=== PATIENT | male | born 1975 | race African-American/Black ===

== ENCOUNTER 2017-02-14 20:27 | Emergency (ER) | payer BC ==
--- NOTE | 2017-02-14 21:11 | PHYS DOC ---
Past Medical History Past Medical History: Asthma, High Cholesterol Past Surgical History: No Surgical History Alcohol Use: Occasionally Drug Use: None Adult General Chief Complaint Chief Complaint: DIZZY/LIGHT HEADED HPI HPI 41-year-old male with known history of asthma and hypercholesterolemia presents with a days worth of decreased PO intake and feelings of dizziness and lightheadedness with exertion. 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 He followed up with his medic and was given some antacid medicine and laid down and rested for approximately an hour. When he awoke, he said he felt significantly better but when he tried to eat and have something to drink afterwards and he said he was nauseated and had minimal appetite and continued to remain somewhat lightheaded and dizzy. He states he's had symptoms like this several years ago that were due to dehydration. He denies feeling significantly short of breath or having any chest pain. He is currently alert and oriented and able to answer my questions appropriately. He appears to be in no distress whatsoever saturating 100% on room air. He denies any recent fever or illness. Review of Systems Review of Systems Constitutional: Denies fever or chills [] Eyes: Denies change in visual acuity, redness, or eye pain [] HENT: Denies nasal congestion or sore throat [] Respiratory: Denies cough or shortness of breath [] Cardiovascular: No additional information not addressed in HPI [] GI: Denies abdominal pain, nausea, vomiting, bloody stools or diarrhea [] : Denies dysuria or hematuria [] Musculoskeletal: Denies back pain or joint pain [] Integument: Denies rash or skin lesions [] Neurologic: Denies headache, focal weakness or sensory changes [] Endocrine: Denies polyuria or polydipsia [] Current Medications Current Medications Current Medications Medications (Trade) Dose Ordered Sig/Jaime Start Time Stop Time Status Last Admin Dose Admin Ondansetron HCl (Zofran) 4 mg 1X ONCE 02/14/17 21:15 02/14/17 21:16 DC 02/14/17 21:19 4 MG Sodium Chloride (Iv Sodium Chloride 0.9% 1000ml Bag) 1,000 ml @ 1,000 mls/hr 1X ONCE 02/14/17 21:15 02/14/17 22:14 02/14/17 21:18 1,000 MLS/HR Allergies Allergies Allergies Coded Allergies Type Severity Reaction Last Updated Verified No Known Drug Allergies 02/14/17 No Physical Exam Physical Exam Constitutional: Well developed, well nourished, no acute distress, non-toxic appearance. [] HENT: Normocephalic, atraumatic, bilateral external ears normal, oropharynx moist, no oral exudates, nose normal. [] Eyes: PERRLA, EOMI, conjunctiva normal, no discharge. [] Neck: Normal range of motion, no tenderness, supple, no stridor. [] Cardiovascular:Heart rate regular rhythm, no murmur [] Lungs & Thorax: Bilateral breath sounds clear to auscultation [] Abdomen: Bowel sounds normal, soft, no tenderness, no masses, no pulsatile masses. [] Skin: Warm, dry, no erythema, no rash. [] Back: No tenderness, no CVA tenderness. [] Extremities: No tenderness, no cyanosis, no clubbing, ROM intact, no edema. [] Neurologic: Alert and oriented X 3, normal motor function, normal sensory function, no focal deficits noted. [] Psychologic: Affect normal, judgement normal, mood normal. [] Current Patient Data Vital Signs Vital Signs Date Time Temp Pulse Resp B/P Pulse Ox O2 Delivery O2 Flow Rate FiO2 02/14/17 20:29 97.7 63 18 119/75 97 Room Air 97.7 Lab Values Laboratory Tests Test 02/14/17 21:00 White Blood Count 6.9x10^3/uL (4.0-11.0) Red Blood Count 4.84x10^6/uL (4.30-5.70) Hemoglobin 15.4g/dL (13.0-17.5) Hematocrit 45.6% (39.0-53.0) Mean Corpuscular Volume 94fL (79-100) Mean Corpuscular Hemoglobin 32pg (25-35) Mean Corpuscular Hemoglobin Concent 34g/dL (31-37) Red Cell Distribution Width 13.0% (11.5-14.5) Platelet Count 238x10^3/uL (140-400) Neutrophils (%) (Auto) 65% (31-73) Lymphocytes (%) (Auto) 26% (24-48) Monocytes (%) (Auto) 7% (0-9) Eosinophils (%) (Auto) 2% (0-3) Basophils (%) (Auto) 1% (0-3) Neutrophils # (Auto) 4.5x10^3uL (1.8-7.7) Lymphocytes # (Auto) 1.8x10^3/uL (1.0-4.8) Monocytes # (Auto) 0.5x10^3/uL (0.0-1.1) Eosinophils # (Auto) 0.1x10^3/uL (0.0-0.7) Basophils # (Auto) 0.1x10^3/uL (0.0-0.2) Sodium Level 140mmol/L (136-145) Potassium Level 3.7mmol/L (3.5-5.1) Chloride Level 102mmol/L (98-107) Carbon Dioxide Level 29mmol/L (21-32) Anion Gap 9 (6-14) Blood Urea Nitrogen 13mg/dL (8-26) Creatinine 1.1mg/dL (0.7-1.3) Estimated GFR (Cockcroft-Gault) 73.1 Glucose Level 102mg/dL (70-99) H Calcium Level 9.3mg/dL (8.5-10.1) Troponin I Quantitative < 0.017ng/mL (0.000-0.055) Laboratory Tests 02/14/17 21:00 Laboratory Tests 02/14/17 21:00 EKG EKG EKG as interpreted by me shows a sinus rhythm with a rate of 57 bpm. Intervals are normal. [place] interval is 168 ms. QTc interval is 355 ms. There are no obvious ischemic findings. Course & Med Decision Making Course & Med Decision Making Pertinent Labs and Imaging studies reviewed. (See chart for details) This 41-year-old male who's having some symptomatic lightheadedness and dizziness with minimal exertion will have laboratory workup including EKG. Fluid bolus and Zofran will be given. Ultimately, the patient will be ambulated around the department and likely will be safe to follow closely with his primary care doctor. A work note will be provided and he is instructed to rest and hydrate at home tomorrow. Upon my reassessment, the patient feels much improved after an IV fluid bolus. Patient will be discharged with a course of Zofran with instruction to continue to remain well-hydrated at home. Dragon Disclaimer Dragon Disclaimer This electronic medical record was generated, in whole or in part, using a voice recognition dictation system. Departure Departure Impression: Primary Impression: Dehydration Disposition: 01 HOME, SELF-CARE Condition: IMPROVED Patient Instructions: Dehydration, Adult, [id number] Additional Instructions: Please take your zofran as prescribed and continue to drink plenty of fluids at home. Remain at home tomorrow and rest. Return to the ER if you develop any worsening of your dizziness or lightheadedness. Scripts Ondansetron Hcl (Zofran)4 Mg Tablet4 Mg PO BID PRN NAUSEA/VOMITING #10 TAB Prov:JUAN JACKSON DO 02/14/17 JUAN JACKSON DO Feb 14, 2017 21:11
[2017-02-14 21:13] LABS: BASO # 0.1 x10^3/uL (0.0-0.2); BASO % 1 % (0-3); EOS % 2 % (0-3); HEMATOCRIT 45.6 % (39.0-53.0); HEMOGLOBIN 15.4 g/dL (13.0-17.5); LYMPH # 1.8 x10^3/uL (1.0-4.8); LYMPH % 26 % (24-48); MEAN CORPUSCULAR HEMOGLOBIN 32 pg (25-35); MEAN CORPUSCULAR HGB CONC 34 g/dL (31-37); MEAN CORPUSCULAR VOLUME 94 fL (79-100); MONO % 7 % (0-9); NEUT % 65 % (31-73); PLATELET COUNT 238 x10^3/uL (140-400); RED BLOOD COUNT 4.84 x10^6/uL (4.30-5.70); WHITE BLOOD COUNT 6.9 x10^3/uL (4.0-11.0)
[2017-02-14] MEDS ORDERED: IV NORMAL SALINE 1000ML BAG 1,000 ML IV ONE (21:15)
[2017-02-14] MEDS ORDERED: ONDANSETRON PF 4 MG/2 ML VIAL. IV ONE (21:15)
[2017-02-14 21:25] LABS: CALCIUM 9.3 mg/dL (8.5-10.1); CREATININE 1.1 mg/dL (0.7-1.3); GFR 73.1; POTASSIUM 3.7 mmol/L (3.5-5.1)
[2017-02-14 21:44] VITALS: BP 136/73
[2017-02-14] MEDS ORDERED: ONDA4TAB7 PO (22:03)
--- NOTE | 2017-02-15 06:26 | EKG ---
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
== END 2017-02-14 22:32 | disposition home or self-care (01) ==
LOC: ER 20:27
DX: E86.0 Dehydration (principal); E78.00 Pure hypercholesterolemia, unspecified; J45.909 Unspecified asthma, uncomplicated
CPT/HCPCS: 36415; 80048; 84484; 85027; 93005; 96361; 96374; 99285; J2405; J7030

== ENCOUNTER 2017-02-27 18:25 | Emergency (ER) | payer BC ==
[~2017-02-27] VITALS: Ht 180.3 cm; Wt 95.3 kg
[~2017-02-27 18:25] MED LIST: ONDA4TAB7 PO
[2017-02-27 18:38] VITALS: BP 135/71
[2017-02-27] MEDS ORDERED: predniSONE 20 MG TABLET PO ONE (19:00)
[2017-02-27] MEDS ORDERED: BENZONATATE 100 MG CAPSULE. PO ONE (19:00)
[2017-02-27] MEDS ORDERED: IPRATRPIUM/ALBUTEROL 0.5/2.5MG 3 ML NEBU. NEB ONE (19:00)
[2017-02-27] MEDS ORDERED: PROAIR RESPICL90 MCG IH (19:29)
[2017-02-27] MEDS ORDERED: PRED50TA PO (19:29)
[2017-02-27] MEDS ORDERED: AZIT250T PO (19:29)
[2017-02-27] MEDS ORDERED: BENZ100C PO (19:29)
--- NOTE | 2017-02-27 19:29 | PHYS DOC ---
Past Medical History Past Medical History: Asthma, High Cholesterol Past Surgical History: No Surgical History Alcohol Use: Occasionally Drug Use: None Adult General Chief Complaint Chief Complaint: COUGH HPI HPI Patient is a 41 year old male with history of smoking and bronchitis who presents with cough and wheezing that began 2 days ago. Patient states he has tried using his inhaler with no relief. Patient states he typically has to have a Z-Chon and prednisone to clear the symptoms. Patient denies any fever. Review of Systems Review of Systems Constitutional: Denies fever or chills [] Eyes: Denies change in visual acuity, redness, or eye pain [] HENT: See history of present illness Respiratory: Productive cough with wheezing Cardiovascular: No additional information not addressed in HPI [] GI: Denies abdominal pain, nausea, vomiting, bloody stools or diarrhea [] : Denies dysuria or hematuria [] Musculoskeletal: Denies back pain or joint pain [] Integument: Denies rash or skin lesions [] Neurologic: Denies headache, focal weakness or sensory changes [] Endocrine: Denies polyuria or polydipsia [] Current Medications Current Medications Current Medications Medications (Trade) Dose Ordered Sig/Jaime Start Time Stop Time Status Last Admin Dose Admin Albuterol/ Ipratropium (Duoneb) 3 ml 1X ONCE 02/27/17 19:00 02/27/17 19:03 DC 02/27/17 19:14 3 ML Benzonatate (Tessalon Perle) 100 mg 1X ONCE 02/27/17 19:00 02/27/17 19:03 DC 02/27/17 19:16 100 MG Prednisone (Prednisone) 60 mg 1X ONCE 02/27/17 19:00 02/27/17 19:03 DC 02/27/17 19:16 60 MG Allergies Allergies Allergies Coded Allergies Type Severity Reaction Last Updated Verified No Known Drug Allergies 02/14/17 No Physical Exam Physical Exam Constitutional: Well developed, well nourished, no acute distress, non-toxic appearance. [] HENT: Normocephalic, atraumatic, bilateral external ears normal, oropharynx moist, no oral exudates, nose normal. [] Eyes: PERRLA, EOMI, conjunctiva normal, no discharge. [] Neck: Normal range of motion, no tenderness, supple, no stridor. [] Cardiovascular:Heart rate regular rhythm, no murmur [] Lungs & Thorax: Diffuse wheezing to posterior upper and lower lung bases. Anterior lung bases are clear. Abdomen: Bowel sounds normal, soft, no tenderness, no masses, no pulsatile masses. [] Skin: Warm, dry, no erythema, no rash. [] Back: No tenderness, no CVA tenderness. [] Extremities: No tenderness, no cyanosis, no clubbing, ROM intact, no edema. [] Neurologic: Alert and oriented X 3, normal motor function, normal sensory function, no focal deficits noted. [] Psychologic: Affect normal, judgement normal, mood normal. [] Current Patient Data Vital Signs Vital Signs Date Time Temp Pulse Resp B/P Pulse Ox O2 Delivery O2 Flow Rate FiO2 02/27/17 18:38 98.5 66 18 94 Room Air 98.5 EKG EKG [] Radiology/Procedures Radiology/Procedures [] Course & Med Decision Making Course & Med Decision Making Pertinent Labs and Imaging studies reviewed. (See chart for details) Patient is in the ED with symptoms consistent of bronchitis. Chest x-ray interpreted by Dr. Dillon is negative for any acute findings. He was given a DuoNeb treatment prednisone and Tessalon Perles. His lungs have cleared up. Discharged with albuterol inhaler prednisone Tessalon Perles and Z-Chon. Follow- up with his own doctor in one week. Nafisa Disclaimer Nafisa Disclaimer This electronic medical record was generated, in whole or in part, using a voice recognition dictation system. Departure Departure Impression: Primary Impression: Acute bronchitis Disposition: 01 HOME, SELF-CARE Condition: STABLE Referrals: NO PCP (PCP) Please follow-up with your doctor in one week Patient Instructions: Acute Bronchitis, [id number] Additional Instructions: You were seen with symptoms consistent of bronchitis. Please take the prescribed medicines as ordered. Follow-up with your doctor in one week. Come back to the ED if symptoms worsen. Scripts Azithromycin (Zithromax)250 Mg Tablet1 Pkg PO UD #1 PKG Prov:MUTUNGA,FUENTES DIGITAL MEDIA REPRESENTATIVE 02/27/17 Benzonatate (Tessalon Perle)100 Mg Capsule1 Cap PO TID #30 CAP Prov:MUTUNGA,FUENTES DIGITAL MEDIA REPRESENTATIVE 02/27/17 Prednisone 50 Mg Tablet1 Tab PO DAILY #4 TAB Prov:MUTUNGA,FUENTES DIGITAL MEDIA REPRESENTATIVE 5/2/17 Albuterol Sulfate (Proair Respiclick)90 Mcg Aer.pow.ba1 Puff IH PRN Q6HRS PRN SHORTNESS OF BREATH #1 INHALER Prov:FUENTES NGUYEN APRN 02/27/17 Problem Qualifiers Primary Impression: Acute bronchitis Bronchitis organism: unspecified organism Qualified Code: J20.9 - Acute bronchitis, unspecified FUENTES NGUYEN APRN February 27, 2017 19:29
--- NOTE | 2017-02-28 08:15 | RAD ---
Indication cough for 3 days. PA and lateral views of the chest were obtained. No prior imaging is available. The heart and pulmonary vessels appear normal. The lungs are clear. Bony structures appear grossly intact. IMPRESSION: Normal study
== END 2017-02-27 19:32 | disposition home or self-care (01) ==
LOC: ER 18:25
DX: J20.9 Acute bronchitis, unspecified (principal); E78.00 Pure hypercholesterolemia, unspecified; J45.909 Unspecified asthma, uncomplicated; F17.200 Nicotine dependence, unspecified, uncomplicated
CPT/HCPCS: 71020; 94250; 94640; 99284; J7512; J7620

== ENCOUNTER 2017-05-03 11:20 | Emergency (ER) | payer BC ==
[~2017-05-03] VITALS: Ht 180.3 cm; Wt 95.3 kg
[~2017-05-03 11:20] MED LIST changes: +AZIT250T PO; +BENZ100C PO; +PRED50TA PO; +PROAIR RESPICL90 MCG IH
[2017-05-03 11:24] VITALS: BP 141/83
[2017-05-03] MEDS ORDERED: IPRATRPIUM/ALBUTEROL 0.5/2.5MG 3 ML NEBU. NEB ONE (11:45)
[2017-05-03] MEDS ORDERED: IPRA3AMP NEB (12:30)
[2017-05-03] MEDS ORDERED: PROAIR HFA8.5 GM INH (12:30)
--- NOTE | 2017-05-03 12:30 | PHYS DOC ---
Past Medical History Past Medical History: Asthma, High Cholesterol Past Surgical History: No Surgical History Additional Information: 0.25 PPD Alcohol Use: Occasionally Drug Use: None Adult General Chief Complaint Chief Complaint: ASTHMA HPI HPI Patient is a 41 year old male presents to the emergency department stating that he's had a 3 to four-day history of shortness of breath with wheezing. He states that he has been using his inhaler more frequently than normal, he states that he's been using an approximately 10 times a day. He states that he continues to have wheezing and shortness of air despite of the use. He denies any chest pain or chest discomfort. Patient does state that he has an appointment with his primary care physician on May 08 however he does not feel he can wait until then to have any relief from the wheezing. Review of Systems Review of Systems Constitutional: Denies fever or chills [] Eyes: Denies change in visual acuity, redness, or eye pain [] HENT: Denies nasal congestion or sore throat [] Respiratory: Denies cough C/o shortness of breath, wheezing [] Cardiovascular: No additional information not addressed in HPI [] GI: Denies abdominal pain, nausea, vomiting, bloody stools or diarrhea [] : Denies dysuria or hematuria [] Musculoskeletal: Denies back pain or joint pain [] Integument: Denies rash or skin lesions [] Neurologic: Denies headache, focal weakness or sensory changes [] Endocrine: Denies polyuria or polydipsia [] Current Medications Current Medications Current Medications Medications (Trade) Dose Ordered Sig/Jaime Start Time Stop Time Status Last Admin Dose Admin Albuterol/ Ipratropium (Duoneb) 3 ml 1X ONCE 05/03/17 11:45 05/03/17 11:51 DC 05/03/17 11:54 3 ML Allergies Allergies Allergies Coded Allergies Type Severity Reaction Last Updated Verified No Known Drug Allergies 02/14/17 No Physical Exam Physical Exam Constitutional: Well developed, well nourished, no acute distress, non-toxic appearance. [] HENT: Normocephalic, atraumatic, bilateral external ears normal, oropharynx moist, no oral exudates, nose normal. [] Eyes: PERRLA, EOMI, conjunctiva normal, no discharge. [] Neck: Normal range of motion, no tenderness, supple, no stridor. [] Cardiovascular:Heart rate regular rhythm, no murmur [] Lungs & Thorax: Breath sounds with wheezing noted in the right lower lobe area posteriorly. Skin: Warm, dry, no erythema, no rash. [] Back: No tenderness Extremities: No tenderness, no cyanosis, no clubbing, ROM intact, no edema. [] Neurologic: Alert and oriented X 3, normal motor function, normal sensory function, no focal deficits noted. [] Psychologic: Affect normal, judgement normal, mood normal. [] Current Patient Data Vital Signs Vital Signs Date Time Temp Pulse Resp B/P (MAP) Pulse Ox O2 Delivery O2 Flow Rate FiO2 05/03/17 11:56 95 Room Air 05/03/17 11:24 98.1 78 18 141/83 (102) 98.1 EKG EKG [] Radiology/Procedures Radiology/Procedures [] Course & Med Decision Making Course & Med Decision Making Pertinent Labs and Imaging studies reviewed. (See chart for details) Patient was provided with respiratory treatment here in the emergency department. He still continues to have wheezes in the posterior lower lobe. Patient will be discharged home with a albuterol inhaler as well as medication for his nebulizer machine at home. He'll be placed on prednisone 40 mg daily for the next 7 days he was recommended to keep his appointment on May 08 for follow-up. Patient was also instructed to not use his inhaler more frequently than as prescribed as this can create increased difficulty with breathing and heart issues. Patient agrees with discharge instructions, treatment regimens and follow-up recommendations. Patient was also instructed to stop smoking as he does state that he is attempting. [] Dragon Disclaimer Dragon Disclaimer This electronic medical record was generated, in whole or in part, using a voice recognition dictation system. Departure Departure Impression: Primary Impression: Asthma exacerbation Disposition: HOME, SELF-CARE Condition: STABLE Referrals: DHEERAJ BARRAGAN MD (PCP) Patient Instructions: Asthma, Adult, [id number] Additional Instructions: Activity as tolerated Medication as prescribed Albuterol inhaler every 4 hours as needed for shortness of breath or wheezing Use the nebulizer every 6 hours as needed Keep your followup appointment in which you have on May 08 Return to emergency department as needed for signs and symptoms that become worse. Scripts Ipratropium/Albuterol Sulfate (DUONEB 0.5-3(2.5) MG/3 ML) 3 Ml Ampul.neb 3 ML NEB QID, #1 EACH Prov: MARIUM MCKOY APRN 05/03/17 Albuterol Sulfate (PROAIR HFA INHALER) 8.5 Gm Hfa.aer.ad 1 PUFF INH PRN Q6HRS Y for SHORTNESS OF BREATH, #1 INHALER 0 Refills Prov: MARIUM MCKOY APRN 05/03/17 MARIUM MCKOY APRN May 03, 2017 12:30
== END 2017-05-03 12:49 | disposition home or self-care (01) ==
LOC: ER 11:20
DX: J45.901 Unspecified asthma with (acute) exacerbation (principal); E78.00 Pure hypercholesterolemia, unspecified; F17.200 Nicotine dependence, unspecified, uncomplicated
CPT/HCPCS: 94250; 94640; 99283; J7620

== ENCOUNTER 2019-01-02 06:55 | Observation (INO) | payer BC ==
[~2019-01-02] VITALS: Ht 180.3 cm; Wt 99.8 kg
[~2019-01-02 06:55] MED LIST changes: +ALBU2.5V8 INH; +IPRA3AMP29 NEB
[2019-01-02] MEDS ORDERED: NITROGLYCERIN SUBLINGUAL 0.4 MG BOTTLE OF 25. SL ONE (07:08)
[2019-01-02] MEDS: NITROGLYCERIN SUBLINGUAL 0.4 MG BOTTLE OF 25. SL PRN ×2 (07:09→07:14)
--- NOTE | 2019-01-02 07:26 | PHYS DOC ---
Past Medical History Past Medical History: Asthma, High Cholesterol Past Surgical History: No Surgical History Additional Information: 6-7 cigarettes daily Alcohol Use: Heavy Additional Information: 2 shots of whiskey or cogniac daily Drug Use: Marijuana Adult General Chief Complaint Chief Complaint: CHEST PAIN HPI HPI Patient is a 43 year old male who presents the ER for evaluation of chest pain. Patient reports at approximately 05 30 this morning he had acute onset of chest heaviness/pressure, 5-6 out of 10, constant, radiation down left arm. Denies any previous episodes. Does not take any medications prehospital. Pain is currently 5 out of 10. No shortness of breath, no nausea, no dizziness, no palpitations. Positive tobacco user, history of dyslipidemia, family history of early coronary artery disease. Reports daily EtOH intake. Patient does express concern about the volume of his alcohol intake. Denies any history of withdrawal seizures. Review of Systems Review of Systems Constitutional: Denies fever or chills [] HENT: Denies nasal congestion or sore throat [] Respiratory: Denies cough or shortness of breath [] Cardiovascular: + chest pain, no orthopnea, no LE edema, no palpitations GI: Denies abdominal pain, nausea, vomiting, bloody stools or diarrhea [] : Denies dysuria or hematuria [] Musculoskeletal: Denies back pain or joint pain [] Integument: Denies rash or skin lesions [] Neurologic: Denies headache, focal weakness or sensory changes [] Endocrine: Denies polyuria or polydipsia [] All other systems were reviewed and found to be within normal limits, except as documented in this note. Current Medications Current Medications Current Medications Medications (Trade) Dose Ordered Sig/Jaime Start Time Stop Time Status Last Admin Dose Admin Aspirin (Children'S Aspirin) 324 mg 1X ONCE 01/02/19 07:30 01/02/19 07:31 DC 01/02/19 07:37 324 MG Nitroglycerin (Nitrostat) 0.4 mg PRN Q5MIN PRN 01/02/19 07:30 01/02/19 07:14 0.4 MG Allergies Allergies Allergies Coded Allergies Type Severity Reaction Last Updated Verified No Known Drug Allergies 02/14/17 No Physical Exam Physical Exam Constitutional: Well developed, well nourished, anxious HENT: Normocephalic, atraumatic, Eyes: PERRLA, EOMI, Neck: Normal range of motion, no tenderness, supple, no stridor. [] Cardiovascular:Heart rate regular rhythm, no murmur [] Lungs & Thorax: Bilateral breath sounds clear to auscultation [] Abdomen: Bowel sounds normal, soft, no tenderness, no masses, no pulsatile masses. [] Skin: Warm, dry, no erythema, no rash. [] Back: No tenderness, no CVA tenderness. [] Extremities: No tenderness, no edema. [] Neurologic: Alert and oriented X 3, no focal deficits noted. [] Psychologic: Anxious, judgement normal, mood normal. [] Current Patient Data Vital Signs Vital Signs Date Time Temp Pulse Resp B/P (MAP) Pulse Ox O2 Delivery O2 Flow Rate FiO2 01/02/19 08:18 62 15 125/66 (85) 96 Room Air 01/02/19 07:02 97.7 97.7 Lab Values Laboratory Tests Test 01/02/19 07:40 White Blood Count 6.0 x10^3/uL (4.0-11.0) Red Blood Count 4.57 x10^6/uL (4.30-5.70) Hemoglobin 14.8 g/dL (13.0-17.5) Hematocrit 43.5 % (39.0-53.0) Mean Corpuscular Volume 95 fL (79-100) Mean Corpuscular Hemoglobin 32 pg (25-35) Mean Corpuscular Hemoglobin Concent 34 g/dL (31-37) Red Cell Distribution Width 12.9 % (11.5-14.5) Platelet Count 220 x10^3/uL (140-400) Neutrophils (%) (Auto) 67 % (31-73) Lymphocytes (%) (Auto) 23 % (24-48) L Monocytes (%) (Auto) 7 % (0-9) Eosinophils (%) (Auto) 2 % (0-3) Basophils (%) (Auto) 1 % (0-3) Neutrophils # (Auto) 4.0 x10^3uL (1.8-7.7) Lymphocytes # (Auto) 1.4 x10^3/uL (1.0-4.8) Monocytes # (Auto) 0.4 x10^3/uL (0.0-1.1) Eosinophils # (Auto) 0.1 x10^3/uL (0.0-0.7) Basophils # (Auto) 0.0 x10^3/uL (0.0-0.2) Sodium Level 141 mmol/L (136-145) Potassium Level 3.8 mmol/L (3.5-5.1) Chloride Level 102 mmol/L (98-107) Carbon Dioxide Level 28 mmol/L (21-32) Anion Gap 11 (6-14) Blood Urea Nitrogen 20 mg/dL (8-26) Creatinine 1.0 mg/dL (0.7-1.3) Estimated GFR (Cockcroft-Gault) 97.8 Glucose Level 109 mg/dL (70-99) H Calcium Level 9.2 mg/dL (8.5-10.1) Troponin I Quantitative < 0.017 ng/mL (0.000-0.055) Laboratory Tests 01/02/19 07:40 Laboratory Tests 01/02/19 07:40 EKG EKG [] 0703: Normal sinus rhythm, no significant ST segment changes. No T-wave inversions. Heart rate 63. Radiology/Procedures Radiology/Procedures CXR IMPRESSION: No acute cardiopulmonary abnormality is detected. Electronically signed by: Sung Gale MD (01/02/2019 7:48 AM) [facility][] Course & Med Decision Making Course & Med Decision Making Pertinent Labs and Imaging studies reviewed. (See chart for details) []0724: Patient with resolution of chest pain/chest heaviness after nitroglycerin sublingual 2. Given the risk factors and elevated heart score will plan to admit. Will continue to monitor pain while in the ER. 0839: Has remained chest pain-free while in the ER after the initial nitroglycerin. Has been given aspirin. Initial EKG and troponin with no acute findings. Chest x-ray with no acute findings. Given cardiac risk factors presentation and elevated heart score will admit. Discussed with Dr. Lees, tongue and groove machine setter for hospital service who is agreeable to admission. Dragon Disclaimer Dragon Disclaimer This electronic medical record was generated, in whole or in part, using a voice recognition dictation system. Departure Departure Impression: Primary Impression: Chest pain Disposition: ADMITTED INPATIENT Admitting Physician: Other (Yoana) Condition: GUARDED Referrals: DHEERAJ BARRAGAN MD (PCP) CORRY CHANG DO Jan 02, 2019 07:25
[2019-01-02] MEDS ORDERED: ASPIRIN CHEWABLE 81 MG TABLET. PO ONE (07:30)
--- NOTE | 2019-01-02 07:51 | RAD ---
Chest, 2 views, 01/02/2019: HISTORY: Chest and left arm pain Comparison is made to a study from 02/27/2017. The heart size and pulmonary vascularity are normal. No pulmonary infiltrate is seen. There is no evidence of pleural fluid. IMPRESSION: No acute cardiopulmonary abnormality is detected. Electronically signed by: Sung Gale MD (01/02/2019 7:48 AM) [facility]
[2019-01-02 08:04] LABS: BASO % 1 % (0-3); EOS # 0.1 x10^3/uL (0.0-0.7); EOS % 2 % (0-3); HEMATOCRIT 43.5 % (39.0-53.0); HEMOGLOBIN 14.8 g/dL (13.0-17.5); LYMPH # 1.4 x10^3/uL (1.0-4.8); LYMPH % 23 % (24-48); MEAN CORPUSCULAR HEMOGLOBIN 32 pg (25-35); MEAN CORPUSCULAR HGB CONC 34 g/dL (31-37); MEAN CORPUSCULAR VOLUME 95 fL (79-100); MONO # 0.4 x10^3/uL (0.0-1.1); MONO % 7 % (0-9); NEUT % 67 % (31-73); PLATELET COUNT 220 x10^3/uL (140-400); RED BLOOD COUNT 4.57 x10^6/uL (4.30-5.70); RED CELL DISTRIBUTION WIDTH 12.9 % (11.5-14.5)
[2019-01-02 08:07] LABS: CALCIUM 9.2 mg/dL (8.5-10.1); GFR 97.8; POTASSIUM 3.8 mmol/L (3.5-5.1)
[2019-01-02] MEDS ORDERED: MORPHINE SULFATE 2 MG/ML VIAL. IV PRN (08:45)
[2019-01-02] MEDS ORDERED: NON FORMULARY ITEM (Albuterol Sulfate (Proair Respiclick) 1 PUFF) IH PRN (08:45)
[2019-01-02] MEDS ORDERED: ACETAMINOPHEN 325 MG TABLET. PO PRN (08:45)
[2019-01-02] MEDS ORDERED: MAG HYDROX/ALUMINUM HYD/SIMETH 30 ML ORAL.SUSP PO PRN (08:45)
[2019-01-02] MEDS ORDERED: MAGNESIUM HYDROXIDE 2,400 MG/30 ML ORAL.SUSP. PO PRN (08:45)
[2019-01-02] MEDS ORDERED: NITROGLYCERIN SUBLINGUAL 0.4 MG BOTTLE OF 25. SL PRN ×2 (08:45)
[2019-01-02] MEDS ORDERED: 0.9 % SODIUM CHLORIDE 10 ML DISP.SYRIN. IV PRN (08:45)
[2019-01-02] MEDS ORDERED: ZOLPIDEM 5 MG TABLET. PO PRN (08:45)
[2019-01-02] MEDS ORDERED: ONDANSETRON PF 4 MG/2 ML VIAL. IV PRN (08:45)
[2019-01-02] MEDS ORDERED: LACTULOSE 20 GM/30 ML SOLUTION. PO PRN (08:45)
[2019-01-02] MEDS: IPRATRPIUM/ALBUTEROL 0.5/2.5MG 3 ML NEBU. NEB SCH ×4 (09:00→20:00)
[2019-01-02] MEDS ORDERED: ALBUTEROL SULFATE 2.5 MG/3 ML NEBU. NEB PRN (09:15)
[2019-01-02] MEDS ORDERED: ONDANSETRON ODT 4 MG TAB.RAPDIS. PO PRN (09:45)
[2019-01-02 09:50] VITALS: BP 144/74
--- NOTE | 2019-01-02 10:00 | NUR ---
Patient admitted 0950, oriented to room, VSS, family at bedside, orders reviewed.
--- NOTE | 2019-01-02 10:35 | EKG ---
[facility] [address] [place] [address] Test Date: 2019-01-02 Test Time: 07:03:37 Pat Name: FIOR BUSTILLO Department: Room: 114 1 Gender: M Dock Boss: : 1975 Requested By: CORRY CHANG Order Number: [id number] Reading MD: Colby Leonard MD Measurements Intervals [place] Rate: 63 P: 43 NM: 170 QRS: 63 QRSD: 92 T: 26 QT: 356 QTc: 367 Interpretive Statements SINUS RHYTHM Electronically Signed On 01-02-2019 11:25:19 FLOATING OPERATOR by Colby Leonard MD
[2019-01-02] MEDS ORDERED: hydrALAZINE 20 MG/ML VIAL. IVP PRN (10:45)
[2019-01-02] MEDS ORDERED: EZET10TA18 PO (10:58)
[2019-01-02] MEDS ORDERED: BUPR450T3 PO (10:58)
[2019-01-02] MEDS ORDERED: MONT10TA9 PO (10:59)
[2019-01-02 11:00] VITALS: BP 140/70
--- NOTE | 2019-01-02 11:05 | PDOC2 ---
TOMAS GARCIA PHOTOGRAPHY COORDINATOR 01/02/19 1105: CARDIAC CONSULT DATE OF CONSULT Date of Consult DATE: 01/02/19 TIME: 10:41 REASON FOR CONSULT Reason for Consult: Chest pain REFERRING PHYSICIAN Referring Physician: Shazia SOURCE Source: Chart review, Patient HISTORY OF PRESENT ILLNESS HISTORY OF PRESENT ILLNESS This is a pleasant 43 yo male admitted for complains of chest pain. Reports that he got home this morning as he was restless last night and actually took caffeine tabs as he works night and he laid down and felt achy left chest with some tingling to his left arm. This lasted for an hour and no SOA, but possibly sensation of palpitations. No nausea or SOA. 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 Denies any past injury, fall, and no fever or chills. No recent long distance travel, neck or shoulder injury. Denies any significant NSAID use and does have heartburn mostly once a week depending of what he eats. Denies any VTE, heart disease. He does drink alcohol and smoke tobacco and was recently changed from statin to zetia due to elevated LFTs. PAST MEDICAL HISTORY Cardiovascular: Hyperlipidemia Pulmonary: Asthma GI: GERD Heme/Onc: No pertinent hx Hepatobiliary: No pertinent hx Psych: Anxiety Musculoskeletal: Other (None) Rheumatologic: No pertinent hx Infectious disease: No pertinent hx ENT: No pertinent hx Renal/: No pertinent hx Endocrine: No pertinent hx Dermatology: No pertinent hx PAST SURGICAL HISTORY Past Surgical History: No pertinent history FAMILY HISTORY Family History: Coronary Artery Disease (father in his 50s) SOCIAL HISTORY Smoke: <1 pack per day ALCOHOL: heavy Drugs: Marijuana Lives: with Family CURRENT MEDICATIONS CURRENT MEDICATIONS Current Medications Medications (Trade) Dose Ordered Sig/Jaime Route PRN Reason Start Time Stop Time Status Last Admin Dose Admin Nitroglycerin (Nitrostat) 0.4 mg PRN Q5MIN PRN SL CHEST PAIN 01/02/19 07:30 01/02/19 07:14 Aspirin (Children'S Aspirin) 324 mg 1X ONCE PO 01/02/19 07:30 01/02/19 07:31 DC 01/02/19 07:37 ALLERGIES ALLERGIES: Coded Allergies: No Known Drug Allergies (Unverified , 02/14/17) ROS Review of System 14 point ROS evaluated with pertinent positives noted per HPI PHYSICAL EXAM General: Alert, Oriented X3, Cooperative, No acute distress HEENT: Atraumatic, Mucous membr. moist/pink Lungs: Clear to auscultation, Normal air movement Heart: Regular rate (SR), Normal S1, Normal S2, No murmurs Abdomen: Soft, No tenderness Extremities: No cyanosis, No edema Skin: No breakdown, No significant lesion Neuro: Normal speech, Sensation intact Psych/Mental Status: Mental status NL, Mood NL MUSCULOSKELETAL: Osteoarthritic changes both hands VITALS VITALS Vital Signs Date Time Temp Pulse Resp B/P (MAP) Pulse Ox O2 Delivery O2 Flow Rate FiO2 01/02/19 09:09 75 15 119/67 (84) 96 Room Air 01/02/19 07:02 97.7 97.7 LABS Lab: Laboratory Tests Test 01/02/19 07:40 White Blood Count 6.0 x10^3/uL (4.0-11.0) Red Blood Count 4.57 x10^6/uL (4.30-5.70) Hemoglobin 14.8 g/dL (13.0-17.5) Hematocrit 43.5 % (39.0-53.0) Mean Corpuscular Volume 95 fL (79-100) Mean Corpuscular Hemoglobin 32 pg (25-35) Mean Corpuscular Hemoglobin Concent 34 g/dL (31-37) Red Cell Distribution Width 12.9 % (11.5-14.5) Platelet Count 220 x10^3/uL (140-400) Neutrophils (%) (Auto) 67 % (31-73) Lymphocytes (%) (Auto) 23 % (24-48) Monocytes (%) (Auto) 7 % (0-9) Eosinophils (%) (Auto) 2 % (0-3) Basophils (%) (Auto) 1 % (0-3) Neutrophils # (Auto) 4.0 x10^3uL (1.8-7.7) Lymphocytes # (Auto) 1.4 x10^3/uL (1.0-4.8) Monocytes # (Auto) 0.4 x10^3/uL (0.0-1.1) Eosinophils # (Auto) 0.1 x10^3/uL (0.0-0.7) Basophils # (Auto) 0.0 x10^3/uL (0.0-0.2) Sodium Level 141 mmol/L (136-145) Potassium Level 3.8 mmol/L (3.5-5.1) Chloride Level 102 mmol/L (98-107) Carbon Dioxide Level 28 mmol/L (21-32) Anion Gap 11 (6-14) Blood Urea Nitrogen 20 mg/dL (8-26) Creatinine 1.0 mg/dL (0.7-1.3) Estimated GFR (Cockcroft-Gault) 97.8 Glucose Level 109 mg/dL (70-99) Calcium Level 9.2 mg/dL (8.5-10.1) Troponin I Quantitative < 0.017 ng/mL (0.000-0.055) ASSESSMENT/PLAN ASSESSMENT/PLAN 1. Atypical CP: possibly spasm, MSK. Trop nml. EKG SR without acute changes by comparison. 2. HLP: on home zetia 3. Hx of transaminitis: likely from combination of statin and ETOH 4. Anxiety 5. Heavy ETOH at least 2-3 shots daily cognac, and binge on weekend 6. Tobaccoism 7. Family hx of CAD Recommendations 1. Trend troponin, TTE, TSH and lipids and LFTs 2. Curb ETOH use and smoking cessation 3. If current cardiac testings are unremarkable then will consider for outpt stress test MOUNA FLORES MD 01/02/192039: CARDIAC CONSULT ASSESSMENT/PLAN ASSESSMENT/PLAN Patient seen and examined. Agree with [employer] DRIVER's assessment and plan. CP with atypical features and most probably musculoskeletal in etiology AR ruled out 2D echo shoed EF 50-55% Plan ischemic evaluation with stress test as outpatient Thank you for your consultation TOMAS GARCIA APRN Jan 02, 2019 11:05 MOUNA FLORES MD Jan 02, 2019 20:40
[2019-01-02 11:36] LABS: ALBUMIN 3.8 g/dL (3.4-5.0); DIRECT BILIRUBIN 0.1 mg/dL (0.0-0.2); TOTAL BILIRUBIN 0.5 mg/dL (0.2-1.0); TOTAL PROTEIN 7.1 g/dL (6.4-8.2)
--- NOTE | 2019-01-02 12:20 | EKG ---
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
[2019-01-02] MEDS: BENZONATATE 100 MG CAPSULE. PO SCH ×2 (14:00→20:59)
--- NOTE | 2019-01-02 14:01 | PDOC1 ---
History and Physical Date of Admission Date of Admission 01/02/2019 Identification/Chief Complaint Chief Complaint My chest hurts Problems: (1) Chest pain Source Source: Chart review, Patient History of Present Illness History of Present Illness Patient is a 43 year old gentleman with history of hypertension and tobacco abuse who was in his usual state fo health until this morning when he woke up with chest discomfort that he describes as "air around my heart" He had radiation to the arm and neck with no associated symptoms, the pain was not worse with exertion and he does not report sensation of impending doom. He refers having discomfort for at least 10 minutes. This is the first time episode. Patient has a very physical job and he denies trauma and no symptoms while performing his work. Patient will be admitted for rule out. His ekg and troponin are reassuring, he may be having anxiety given the history of stress at work. Past Medical History Cardiovascular: Hyperlipidemia Pulmonary: Asthma GI: GERD Heme/Onc: No pertinent hx Hepatobiliary: No pertinent hx Psych: Anxiety Rheumatologic: No pertinent hx Infectious disease: No pertinent hx ENT: No pertinent hx Renal/: No pertinent hx Endocrine: No pertinent hx Dermatology: No pertinent hx Past Surgical History Past Surgical History: No pertinent history Family History Family History: Coronary Artery Disease (father in his 50s) Social History Smoke: <1 pack per day ALCOHOL: heavy Drugs: Marijuana Current Medications Current Medications Current Medications Medications (Trade) Dose Ordered Sig/Jaime Start Time Stop Time Status Last Admin Dose Admin Acetaminophen (Tylenol) 650 mg PRN Q6HRS PRN 01/02/19 08:45 Al Hydroxide/Mg Hydroxide (Mylanta Plus Xs) 30 ml PRN Q4HRS PRN 01/02/19 08:45 Albuterol Sulfate (Ventolin Neb Soln) 2.5 mg PRN Q6HRS PRN 01/02/19 09:15 Albuterol/ Ipratropium (Duoneb) 3 ml QID 01/02/19 09:00 01/02/19 12:01 3 ML Aspirin (Children'S Aspirin) 324 mg 1X ONCE 01/02/19 07:30 01/02/19 07:31 DC 01/02/19 07:37 324 MG Benzonatate (Tessalon Perle) 100 mg [id number] 01/02/19 14:00 Hydralazine HCl (Apresoline Inj) 10 mg PRN Q4HRS PRN 01/02/19 10:45 Lactulose (Lactulose) 20 gm PRN Q12HR PRN 01/02/19 08:45 Magnesium Hydroxide (Milk Of Magnesia) 2,400 mg PRN Q12HR PRN 01/02/19 08:45 Morphine Sulfate (Morphine Sulfate) 1 mg PRN Q10MIN PRN 01/02/19 08:45 Nitroglycerin (Nitrostat) 0.4 mg PRN Q5MIN PRN 01/02/19 08:45 01/03/19 08:44 Non-Formulary Medication (Albuterol Sulfate (Proair Respiclick)) 1 puff PRN Q6HRS PRN 01/02/19 08:45 UNV Ondansetron HCl (Zofran Odt) 4 mg PRN BID PRN 01/02/19 09:45 Ondansetron HCl (Zofran) 4 mg PRN Q6HRS PRN 01/02/19 08:45 Sodium Chloride (Normal Saline Flush) 3 ml QSHIFT PRN 01/02/19 08:45 Zolpidem Tartrate (Ambien) 5 mg PRN QHS PRN 01/02/19 08:45 Allergies Allergies Allergies Coded Allergies Type Severity Reaction Last Updated Verified No Known Drug Allergies 02/14/17 No ROS Review of System CONSTITUTIONAL: No fever or chills EYES: No recent changes SKIN: No rash or itching CARDIOVASCULAR: No chest pain, syncope, palpitations, or edema RESPIRATORY: No SOB or cough GASTROINTESTINAL: No nausea, vomiting or abdominal pain NEUROLOGICAL: No headaches or weakness ENDOCRINE: No cold or heat intolerance GENITOURINARY: No urgency or frequency of urination MUSCULOSKELETAL: No back pain or joint pain LYMPHATICS: No enlarged lymph nodes PSYCHIATRIC: No anxiety or depression Physical Exam Physical Exam GEN.: No apparent distress. Alert and oriented. HEENT: Head is normocephalic, atraumatic NECK: Supple. LUNGS: Clear to auscultation. HEART: RRR, S1, S2 present. Peripheral pulses intact ABDOMEN: Soft, nontender. Positive bowel sounds. EXTREMITIES: Without any cyanosis. NEUROLOGIC: Normal speech, normal tone PSYCHIATRIC: Normal affect, normal mood. SKIN: No ulcerations Vitals Vitals Vital Signs Date Time Temp Pulse Resp B/P (MAP) Pulse Ox O2 Delivery O2 Flow Rate FiO2 01/02/19 12:01 100 Room Air 01/02/19 11:00 79 20 140/70 (93) 01/02/19 09:50 98.0 98.0 Labs Labs Laboratory Tests Test 01/02/19 07:40 01/02/19 11:45 White Blood Count 6.0 x10^3/uL (4.0-11.0) Red Blood Count 4.57 x10^6/uL (4.30-5.70) Hemoglobin 14.8 g/dL (13.0-17.5) Hematocrit 43.5 % (39.0-53.0) Mean Corpuscular Volume 95 fL (79-100) Mean Corpuscular Hemoglobin 32 pg (25-35) Mean Corpuscular Hemoglobin Concent 34 g/dL (31-37) Red Cell Distribution Width 12.9 % (11.5-14.5) Platelet Count 220 x10^3/uL (140-400) Neutrophils (%) (Auto) 67 % (31-73) Lymphocytes (%) (Auto) 23 % (24-48) Monocytes (%) (Auto) 7 % (0-9) Eosinophils (%) (Auto) 2 % (0-3) Basophils (%) (Auto) 1 % (0-3) Neutrophils # (Auto) 4.0 x10^3uL (1.8-7.7) Lymphocytes # (Auto) 1.4 x10^3/uL (1.0-4.8) Monocytes # (Auto) 0.4 x10^3/uL (0.0-1.1) Eosinophils # (Auto) 0.1 x10^3/uL (0.0-0.7) Basophils # (Auto) 0.0 x10^3/uL (0.0-0.2) Sodium Level 141 mmol/L (136-145) Potassium Level 3.8 mmol/L (3.5-5.1) Chloride Level 102 mmol/L (98-107) Carbon Dioxide Level 28 mmol/L (21-32) Anion Gap 11 (6-14) Blood Urea Nitrogen 20 mg/dL (8-26) Creatinine 1.0 mg/dL (0.7-1.3) Estimated GFR (Cockcroft-Gault) 97.8 Glucose Level 109 mg/dL (70-99) Calcium Level 9.2 mg/dL (8.5-10.1) Total Bilirubin 0.5 mg/dL (0.2-1.0) Direct Bilirubin 0.1 mg/dL (0.0-0.2) Aspartate Amino Transf (AST/SGOT) 32 U/L (15-37) Alanine Aminotransferase (ALT/SGPT) 66 U/L (16-63) Alkaline Phosphatase 52 U/L (46-116) Troponin I Quantitative < 0.017 ng/mL (0.000-0.055) < 0.017 ng/mL (0.000-0.055) Total Protein 7.1 g/dL (6.4-8.2) Albumin 3.8 g/dL (3.4-5.0) Triglycerides Level 282 mg/dL (0-150) Cholesterol Level 265 mg/dL (0-200) LDL Cholesterol, Calculated 165 mg/dL (0-100) VLDL Cholesterol, Calculated 56 mg/dL (0-40) Non-HDL Cholesterol Calculated 221 mg/dL (0-129) HDL Cholesterol 44 mg/dL (40-60) Cholesterol/HDL Ratio 6.0 Thyroid Stimulating Hormone (TSH) 1.079 uIU/mL (0.358-3.74) Laboratory Tests Test 01/02/19 07:40 01/02/19 11:45 White Blood Count 6.0 x10^3/uL (4.0-11.0) Red Blood Count 4.57 x10^6/uL (4.30-5.70) Hemoglobin 14.8 g/dL (13.0-17.5) Hematocrit 43.5 % (39.0-53.0) Mean Corpuscular Volume 95 fL (79-100) Mean Corpuscular Hemoglobin 32 pg (25-35) Mean Corpuscular Hemoglobin Concent 34 g/dL (31-37) Red Cell Distribution Width 12.9 % (11.5-14.5) Platelet Count 220 x10^3/uL (140-400) Neutrophils (%) (Auto) 67 % (31-73) Lymphocytes (%) (Auto) 23 % (24-48) Monocytes (%) (Auto) 7 % (0-9) Eosinophils (%) (Auto) 2 % (0-3) Basophils (%) (Auto) 1 % (0-3) Neutrophils # (Auto) 4.0 x10^3uL (1.8-7.7) Lymphocytes # (Auto) 1.4 x10^3/uL (1.0-4.8) Monocytes # (Auto) 0.4 x10^3/uL (0.0-1.1) Eosinophils # (Auto) 0.1 x10^3/uL (0.0-0.7) Basophils # (Auto) 0.0 x10^3/uL (0.0-0.2) Sodium Level 141 mmol/L (136-145) Potassium Level 3.8 mmol/L (3.5-5.1) Chloride Level 102 mmol/L (98-107) Carbon Dioxide Level 28 mmol/L (21-32) Anion Gap 11 (6-14) Blood Urea Nitrogen 20 mg/dL (8-26) Creatinine 1.0 mg/dL (0.7-1.3) Estimated GFR (Cockcroft-Gault) 97.8 Glucose Level 109 mg/dL (70-99) Calcium Level 9.2 mg/dL (8.5-10.1) Total Bilirubin 0.5 mg/dL (0.2-1.0) Direct Bilirubin 0.1 mg/dL (0.0-0.2) Aspartate Amino Transf (AST/SGOT) 32 U/L (15-37) Alanine Aminotransferase (ALT/SGPT) 66 U/L (16-63) Alkaline Phosphatase 52 U/L (46-116) Troponin I Quantitative < 0.017 ng/mL (0.000-0.055) < 0.017 ng/mL (0.000-0.055) Total Protein 7.1 g/dL (6.4-8.2) Albumin 3.8 g/dL (3.4-5.0) Triglycerides Level 282 mg/dL (0-150) Cholesterol Level 265 mg/dL (0-200) LDL Cholesterol, Calculated 165 mg/dL (0-100) VLDL Cholesterol, Calculated 56 mg/dL (0-40) Non-HDL Cholesterol Calculated 221 mg/dL (0-129) HDL Cholesterol 44 mg/dL (40-60) Cholesterol/HDL Ratio 6.0 Thyroid Stimulating Hormone (TSH) 1.079 uIU/mL (0.358-3.74) VTE Prophylaxis Ordered VTE Prophylaxis Devices: No VTE Pharmacological Prophylaxi: Yes Assessment/Plan Assessment/Plan Chest pain rule out ACS HTN Tobacco abuse ANxiety disorder? Plan trend troponin will consult cardiology resume home medications further recommendations based on clinical course. Problem Qualifiers (1) Chest pain: Chest pain type: unspecified Qualified Codes: R07.9 - Chest pain, unspecified WYATT BILLY MD Jan 02, 2019 14:01
[2019-01-02] MEDS ORDERED: DEXTROSE 50% 25 GM / 50ML DISP.SYRIN. IV ONE ×2 (14:59→15:00)
[2019-01-02 15:00] VITALS: BP 123/67
--- NOTE | 2019-01-02 16:17 | CARD ---
MR#: [id number] Date of Study: 01/02/2019 Ordering Physician: TOMAS GARCIA, Referring Physician: WYATT BILLY Tech: Molly Garay RDCS APPROVED REPORT EXAM: Two-dimensional and M-mode echocardiogram with Doppler and color Doppler. Other Information Quality : Good INDICATION Chest Pain 2D DIMENSIONS RVDd3.2 (2.9-3.5cm)Left Atrium(2D)3.7 (1.6-4.0cm) IVSd1.2 (0.7-1.1cm)Aortic Root(2D)2.8 (2.0-3.7cm) LVDd4.6 (3.9-5.9cm)LVOT Diameter2.3 (1.8-2.4cm) PWd1.2 (0.7-1.1cm)LVDs3.1 (2.5-4.0cm) FS (%) 32.8 %SV59.9 ml LVEF(%)61.4 (>50%) Aortic Valve AoV Peak Leonard.135.2cm/sAoV VTI24.4cm AO Peak GR.7.3mmHgLVOT VTI 24.27cm AO Mean GR.4mmHgAVA (VTI)4.18cm2 Mitral Valve MV E Wxgsszvg08.5cm/sMV DECEL [id number] MV A Vvilktsv82.2cm/sE/A Ratio1.8 TDI Lateral E' P. V9.98cm/sMedial E' P. V9.31cm/s E/Lateral E'8.6E/Medial E'9.2 Pulmonary Vein S1 Fuoupqqe16.9cm/sS2 Xsbmbmav70.51cm/s D2 Smwufjha89.5cm/s LEFT VENTRICLE The left ventricle is normal size. There is mild concentric left ventricular hypertrophy. Left ventri kayden systolic function is low normal. The Ejection Fraction is 50-55%. There is normal LV segmental wa ll motion. The left ventricular diastolic function and filling is normal for age. RIGHT VENTRICLE The right ventricle is normal size. The right ventricular systolic function is normal. ATRIA The left atrium size is normal. The right atrium size is normal. The interatrial septum is intact wit h no evidence for an atrial septal defect or patent foramen ovale as noted on 2-D or Doppler imaging. AORTIC VALVE The aortic valve is normal in structure and function. Doppler and Color Flow revealed no significant aortic regurgitation. There is no significant aortic valvular stenosis. MITRAL VALVE The mitral valve is normal in structure and function. There is no evidence of mitral valve prolapse. There is no mitral valve stenosis. Doppler and Color Flow revealed no mitral valve regurgitation note d. TRICUSPID VALVE The tricuspid valve is normal in structure and function. Doppler and Color Flow revealed trace tricus pid regurgitation. There is no tricuspid valve stenosis. PULMONIC VALVE The pulmonary valve is normal in structure and function. Doppler and Color Flow revealed trace pulmon ic valvular regurgitation. There is no pulmonic valvular stenosis. GREAT VESSELS The aortic root is normal in size. The ascending aorta is normal in size. The IVC is normal in size a nd collapses >50% with inspiration. PERICARDIAL EFFUSION There is no evidence of significant pericardial effusion. Critical Notification Critical Value: No <Conclusion> Left ventricle systolic function is low normal. The Ejection Fraction is 50-55%. There is normal LV segmental wall motion. Signed by : Colby Leonard, Electronically Approved : 01/02/2019 16:16:40
[2019-01-02 19:00] VITALS: BP 129/72
[2019-01-02] MEDS ORDERED: MONTELUKAST SODIUM 10 MG TABLET. PO SCH (21:00)
[2019-01-02 23:00] VITALS: BP 144/70
[2019-01-03 03:00] VITALS: BP 140/71
[2019-01-03 07:00] VITALS: BP 141/72
[2019-01-03] MEDS: IPRATRPIUM/ALBUTEROL 0.5/2.5MG 3 ML NEBU. NEB SCH ×2 (08:14→11:11)
[2019-01-03] MEDS ORDERED: buPROPion XL 150 MG TAB.ER.24H. PO SCH (09:00)
[2019-01-03] MEDS: BENZONATATE 100 MG CAPSULE. PO SCH (09:00)
[2019-01-03] MEDS ORDERED: EZETIMIBE 10 MG TABLET. PO SCH (09:00)
--- NOTE | 2019-01-03 10:24 | NUR ---
SS following for discharge planning. SS reviewed pt chart. Pt is from home with spouse and is currently on room air. No discharge needs noted at this time. SS will continue to follow for pending discharge needs.
[2019-01-03 11:00] VITALS: BP 141/72
--- NOTE | 2019-01-03 11:33 | PDOC ---
PROGRESS NOTES Chief Complaint Chief Complaint Chest pain rule out ACS HTN Tobacco abuse Hx of Anxiety? History of Present Illness History of Present Illness Mr. Nixon presented to the ED with chest pain, admitted for cardiac work up, negative troponins x 3 and Echo and chest Xray showed no abnormalities. Echo EF 50-55%. Cardiology following. Patient was seen and examined in the ICU. Patient is resting comfortably. He denies current chest pain and feels ready for discharge. Patient requesting note for time off work. Vitals Vitals Vital Signs Date Time Temp Pulse Resp B/P (MAP) Pulse Ox O2 Delivery O2 Flow Rate FiO2 01/03/19 11:12 98 Room Air 01/03/19 07:00 98.1 52 10 141/72 (95) 98.1 Physical Exam General: Alert, Oriented X3, Cooperative, No acute distress Heart: Regular rate, Normal S1, Normal S2, No murmurs Lungs: Clear Abdomen: Normal bowel sounds, Soft, No tenderness Extremities: No clubbing, No cyanosis, No edema Skin: No rashes, No significant lesion Labs LABS Laboratory Tests Test 01/02/19 11:45 01/02/19 18:35 01/03/19 03:30 Troponin I Quantitative < 0.017 ng/mL (0.000-0.055) < 0.017 ng/mL (0.000-0.055) < 0.017 ng/mL (0.000-0.055) Triglycerides Level 221 mg/dL (0-150) Cholesterol Level 270 mg/dL (0-200) LDL Cholesterol, Calculated 181 mg/dL (0-100) VLDL Cholesterol, Calculated 44 mg/dL (0-40) Non-HDL Cholesterol Calculated 225 mg/dL (0-129) HDL Cholesterol 45 mg/dL (40-60) Cholesterol/HDL Ratio 6.0 Review of Systems Review of Systems Denies chest pain Denies shortness of breath Assessment and Plan Assessmemt and Plan Assessment: Chest pain rule out ACS HTN Tobacco abuse Hx of Anxiety? Plan: Discharge today Follow up with Cardiology outpatient Continue home meds Sick note for work provided Return to ED with worsening symptoms Follow up with PCP outpatient Comment Review of Relevant I have reviewed the following items jose (where applicable) has been applied. Labs Laboratory Tests Test 01/02/19 07:40 01/02/19 10:05 01/02/19 11:45 01/02/19 18:35 White Blood Count 6.0 x10^3/uL (4.0-11.0) Red Blood Count 4.57 x10^6/uL (4.30-5.70) Hemoglobin 14.8 g/dL (13.0-17.5) Hematocrit 43.5 % (39.0-53.0) Mean Corpuscular Volume 95 fL (79-100) Mean Corpuscular Hemoglobin 32 pg (25-35) Mean Corpuscular Hemoglobin Concent 34 g/dL (31-37) Red Cell Distribution Width 12.9 % (11.5-14.5) Platelet Count 220 x10^3/uL (140-400) Neutrophils (%) (Auto) 67 % (31-73) Lymphocytes (%) (Auto) 23 % (24-48) Monocytes (%) (Auto) 7 % (0-9) Eosinophils (%) (Auto) 2 % (0-3) Basophils (%) (Auto) 1 % (0-3) Neutrophils # (Auto) 4.0 x10^3uL (1.8-7.7) Lymphocytes # (Auto) 1.4 x10^3/uL (1.0-4.8) Monocytes # (Auto) 0.4 x10^3/uL (0.0-1.1) Eosinophils # (Auto) 0.1 x10^3/uL (0.0-0.7) Basophils # (Auto) 0.0 x10^3/uL (0.0-0.2) Sodium Level 141 mmol/L (136-145) Potassium Level 3.8 mmol/L (3.5-5.1) Chloride Level 102 mmol/L (98-107) Carbon Dioxide Level 28 mmol/L (21-32) Anion Gap 11 (6-14) Blood Urea Nitrogen 20 mg/dL (8-26) Creatinine 1.0 mg/dL (0.7-1.3) Estimated GFR (Cockcroft-Gault) 97.8 Glucose Level 109 mg/dL (70-99) Calcium Level 9.2 mg/dL (8.5-10.1) Total Bilirubin 0.5 mg/dL (0.2-1.0) Direct Bilirubin 0.1 mg/dL (0.0-0.2) Aspartate Amino Transf (AST/SGOT) 32 U/L (15-37) Alanine Aminotransferase (ALT/SGPT) 66 U/L (16-63) Alkaline Phosphatase 52 U/L (46-116) Troponin I Quantitative < 0.017 ng/mL (0.000-0.055) < 0.017 ng/mL (0.000-0.055) < 0.017 ng/mL (0.000-0.055) Total Protein 7.1 g/dL (6.4-8.2) Albumin 3.8 g/dL (3.4-5.0) Triglycerides Level 282 mg/dL (0-150) Cholesterol Level 265 mg/dL (0-200) LDL Cholesterol, Calculated 165 mg/dL (0-100) VLDL Cholesterol, Calculated 56 mg/dL (0-40) Non-HDL Cholesterol Calculated 221 mg/dL (0-129) HDL Cholesterol 44 mg/dL (40-60) Cholesterol/HDL Ratio 6.0 Thyroid Stimulating Hormone (TSH) 1.079 uIU/mL (0.358-3.74) Nasal Screen MRSA (PCR) Negative (Negative) Test 01/03/19 03:30 Troponin I Quantitative < 0.017 ng/mL (0.000-0.055) Triglycerides Level 221 mg/dL (0-150) Cholesterol Level 270 mg/dL (0-200) LDL Cholesterol, Calculated 181 mg/dL (0-100) VLDL Cholesterol, Calculated 44 mg/dL (0-40) Non-HDL Cholesterol Calculated 225 mg/dL (0-129) HDL Cholesterol 45 mg/dL (40-60) Cholesterol/HDL Ratio 6.0 Laboratory Tests Test 01/02/19 11:45 01/02/19 18:35 01/03/19 03:30 Troponin I Quantitative < 0.017 ng/mL (0.000-0.055) < 0.017 ng/mL (0.000-0.055) < 0.017 ng/mL (0.000-0.055) Triglycerides Level 221 mg/dL (0-150) Cholesterol Level 270 mg/dL (0-200) LDL Cholesterol, Calculated 181 mg/dL (0-100) VLDL Cholesterol, Calculated 44 mg/dL (0-40) Non-HDL Cholesterol Calculated 225 mg/dL (0-129) HDL Cholesterol 45 mg/dL (40-60) Cholesterol/HDL Ratio 6.0 Medications Current Medications Nitroglycerin (Nitrostat) 0.4 mg STK-MED ONCE SL ; Start 01/02/19 at 07:08; Stop 01/02/19 at 07:09; Status DC Nitroglycerin (Nitrostat) 0.4 mg PRN Q5MIN PRN SL CHEST PAIN Last administered on 01/02/19at 07:14; Start 01/02/19 at 07:30; Stop 01/02/19 at 16:37; Status DC Aspirin (Children'S Aspirin) 324 mg 1X ONCE PO Last administered on 01/02/19at 07:37; Start 01/02/19 at 07:30; Stop 01/02/19 at 07:31; Status DC Nitroglycerin (Nitrostat) 0.4 mg PRN Q5MIN PRN SL CHEST PAIN; Start 01/02/19 at 08:45 Morphine Sulfate (Morphine Sulfate) 1 mg PRN Q10MIN PRN IV CHEST PAIN; Start at 08:45 Acetaminophen (Tylenol) 650 mg PRN Q6HRS PRN PO MILD PAIN / TEMP; Start at 08:45 Al Hydroxide/Mg Hydroxide (Mylanta Plus Xs) 30 ml PRN Q4HRS PRN PO HEARTBURN / GAS; Start 01/02/19 at 08:45 Ondansetron HCl (Zofran) 4 mg PRN Q6HRS PRN IV NAUSEA/VOMITING; Start 01/02/19 at 08:45 Zolpidem Tartrate (Ambien) 5 mg PRN QHS PRN PO INSOMNIA; Start 01/02/19 at 08:45 Sodium Chloride (Normal Saline Flush) 3 ml QSHIFT PRN IV AFTER MEDS AND BLOOD DRAWS; Start 01/02/19 at 08:45 Magnesium Hydroxide (Milk Of Magnesia) 2,400 mg PRN Q12HR PRN PO CONSTIPATION 1ST CHOICE; Start 01/02/19 at 08:45 Lactulose (Lactulose) 20 gm PRN Q12HR PRN PO CONSTIPATION 2ND CHOICE; Start 01/02/19 at 08:45 Albuterol Sulfate (Ventolin Neb Soln) 2.5 mg PRN Q6HRS PRN NEB SHORTNESS OF BREATH; Start 01/02/19 at 09:15 Albuterol/ Ipratropium (Duoneb) 3 ml QID NEB Last administered on 01/03/19at 11: 11; Start 01/02/19 at 09:00 Non-Formulary Medication (Albuterol Sulfate (Proair Respiclick)) 1 puff PRN Q6HRS PRN IH SHORTNESS OF BREATH; Start 01/02/19 at 08:45; Status UNV Benzonatate (Tessalon Perle) 100 mg [id number] PO Last administered on 01/02/19at 20: 59; Start 01/02/19 at 14:00 Ondansetron HCl (Zofran Odt) 4 mg PRN BID PRN PO NAUSEA/VOMITING; Start at 09:45 Nitroglycerin (Nitrostat) 0.4 mg PRN Q5MIN PRN SL CHEST PAIN; Start 01/02/19 at 08:45; Stop 01/03/19 at 08:44; Status DC Hydralazine HCl (Apresoline Inj) 10 mg PRN Q4HRS PRN IVP ELEVATED BP, SEE COMMENTS; Start 01/02/19 at 10:45 EZETIMIBE (Zetia) 10 mg DAILY PO Last administered on 01/03/19at 09:50; Start 01/03/19 at 09:00 Bupropion HCl (Wellbutrin Xl) 300 mg DAILY PO Last administered on 01/03/19at 09: 50; Start 01/03/19 at 09:00 Montelukast Sodium (Singulair) 10 mg QHS PO Last administered on 01/02/19at 20:59 ; Start 01/02/19 at 21:00 Dextrose (Dextrose 50%-Water Syringe) 25 gm STK-MED ONCE IV ; Start 01/02/19 at 14:59; Stop 01/02/19 at 15:00; Status DC Dextrose (Dextrose 50%-Water Syringe) 25 gm STK-MED ONCE IV ; Start 01/02/19 at 15:00; Stop 01/03/19 at 08:44; Status DC Active Scripts Active Duoneb 0.5-3(2.5) Mg/3 Ml (Albuterol/Ipratropium) 3 Ml Ampul.neb 3 Ml NEB QID Proair Hfa Inhaler (Albuterol Sulfate) 8.5 Gm Hfa.aer.ad 1 Puff INH PRN Q6HRS PRN Zithromax (Azithromycin) 250 Mg Tablet 1 Pkg PO UD Prednisone 50 Mg Tablet 1 Tab PO DAILY Proair Respiclick (Albuterol Sulfate) 90 Mcg Aer.pow.ba 1 Puff IH PRN Q6HRS PRN Zofran (Ondansetron Hcl) 4 Mg Tablet 4 Mg PO BID PRN Reported Montelukast Sodium Tablet (Montelukast Sodium) 10 Mg Tablet 10 Mg PO DAILY Bupropion Xl (Bupropion HCl) 450 Mg Tab.er.24h 300 Mg PO DAILY Zetia (Ezetimibe) 10 Mg Tablet 10 Mg PO DAILY Vitals/I & O Vital Sign - Last 24 Hours 01/02/19 01/02/19 01/02/19 01/02/19 12:01 15:00 16:55 19:00 Temp 98.3 98.2 98.3 98.2 Pulse 57 70 Resp 13 16 B/P (MAP) 123/67 (85) 129/72 (91) Pulse Ox 100 97 95 97 O2 Delivery Room Air Room Air Room Air Room Air 01/02/19 01/02/19 01/02/19 01/03/19 19:46 19:50 23:00 03:00 Temp 98.4 97.8 98.4 97.8 Pulse 58 62 Resp 15 12 B/P (MAP) 144/70 (94) 140/71 (94) Pulse Ox 96 97 94 O2 Delivery Room Air Room Air Room Air Room Air 01/03/19 01/03/19 01/03/19 01/03/19 07:00 08:02 08:14 11:12 Temp 98.1 98.1 Pulse 52 Resp 10 B/P (MAP) 141/72 (95) Pulse Ox 96 98 98 O2 Delivery Room Air Room Air Room Air Room Air Intake and Output 01/02/19 01/02/19 01/03/19 15:00 23:00 07:00 Intake Total 1080 ml 920 ml Output Total 0 ml 700 ml Balance 0 ml 380 ml 920 ml FAVIAN WHIPPLE III DO Jan 03, 2019 11:33
--- NOTE | 2019-01-03 11:48 | NUR ---
Discharge Note: FIOR BUSTILLO [facility] ICU Discharge instructions and discharge home medications reviewed with Patient and a copy given. All questions have been answered and understanding verbalized. 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 Hardy 02/10/19. Follow up with PCP in one week. Education pertaining to smoke cessassion, stress test was discussed and given to patient. Return to work script from Dr. Olivier given to patient. Discontinued lines and drains: 20g l ac removed with tip intact. Patient discharged to home with self care. [facility] transport drove patient from [facility] facility.
--- NOTE | 2019-01-03 13:11 | DS ---
DATE OF DISCHARGE: 01/03/2019 ADMISSION DIAGNOSIS: Chest pain. DISCHARGE DIAGNOSIS: Atypical chest pain, suspect gastroesophageal reflux disease. HOSPITAL COURSE: The patient is a pleasant middle-aged male, who presented with chest pain. He was admitted. We checked serial enzymes, serial EKGs. We consulted Cardiology. So far, his workup is negative. I saw and examined him this morning, his heart tones were normal. His lungs were clear. I checked cardiology's notes they are considering an outpatient workup for ischemia and I have recommended that he curb his alcohol use and cigarette cessation. We plan to discharge if okay with Cardiology. DISPOSITION: Home. ACTIVITY: As tolerated. DIET: Low sodium. MEDICATIONS: Please see the MRAD. TOTAL TIME: 32 minutes. FAVIAN WHIPPLE DO DR: JIN/meagan JOB#: [id number] / [id number]
[2019-01-13] MEDS ORDERED: AMLO10TA8 PO (16:16)
== END 2019-01-03 11:52 | disposition home or self-care (01) ==
LOC: ER 06:55 → 1 WEST ICU 08:38
PROVIDERS: ADMIT Internal Medicine; ATTEND Internal Medicine
DX: R07.89 Other chest pain (principal); E78.5 Hyperlipidemia, unspecified; J45.909 Unspecified asthma, uncomplicated; F17.210 Nicotine dependence, cigarettes, uncomplicated; F12.90 Cannabis use, unspecified, uncomplicated; I10 Essential (primary) hypertension; K21.9 Gastro-esophageal reflux disease without esophagitis; F41.9 Anxiety disorder, unspecified; Z82.49 Family history of ischemic heart disease and other diseases of the circulatory system
CPT/HCPCS: 36415; 71046; 80048; 80061; 80076; 84443; 84484; 85025; 87641; 93005; 93306; 94640; 94760; 99284; 99406; G0378; J7620; G0379; J7042

== ENCOUNTER 2019-01-11 20:48 | Inpatient (IN) | payer BC ==
[~2019-01-11] VITALS: Ht 180.3 cm; Wt 99.8 kg
[~2019-01-11 20:48] MED LIST changes: +BUPR450T3 PO; +EZET10TA18 PO; +MONT10TA9 PO
[2019-01-11] MEDS ORDERED: ASPIRIN CHEWABLE 81 MG TABLET. PO ONE (22:00)
[2019-01-11] MEDS ORDERED: fentaNYL PF VIAL 100 MCG/2 ML VIAL IV ONE (22:00)
--- NOTE | 2019-01-11 22:22 | RAD ---
PA and lateral chest. HISTORY: Chest pain PA and lateral views were taken of the chest. Lungs are clear. Heart is normal in size. There is no pleural effusion. IMPRESSION: 1. No acute chest disease. Electronically signed by: Dwight Albarran MD (01/11/2019 10:19 PM) [id number]
--- NOTE | 2019-01-11 22:31 | PHYS DOC ---
Past Medical History Past Medical History: Asthma, High Cholesterol Past Surgical History: No Surgical History Alcohol Use: Heavy Drug Use: Marijuana Adult General Chief Complaint Chief Complaint: UPPER EXTREMITY PAIN HPI HPI Patient is a 43 year old male who presents with was admitted on January 02 with chest pain. Patient is here because he continues to have chest pressure and tightness throughout his whole chest, heart palpitations that come and go, left arm numbness, left jaw pain. Patient has history of smoking, asthma, dyslipidemia, family history of CAD, daily alcohol use. Review of Systems Review of Systems Constitutional: Denies fever or chills [] Eyes: Denies change in visual acuity, redness, or eye pain [] HENT: Denies nasal congestion or sore throat [] Respiratory: Denies cough or shortness of breath [] Cardiovascular: Chest tightness with radiation to left arm with numbness and left jaw pain. Heart palpitations. GI: Denies abdominal pain, nausea, vomiting, bloody stools or diarrhea [] : Denies dysuria or hematuria [] Musculoskeletal: Denies back pain or joint pain [] Integument: Denies rash or skin lesions [] Neurologic: Denies headache, focal weakness or sensory changes [] Endocrine: Denies polyuria or polydipsia [] All other systems were reviewed and found to be within normal limits, except as documented in this note. Current Medications Current Medications Current Medications Medications (Trade) Dose Ordered Sig/Jaime Start Time Stop Time Status Last Admin Dose Admin Albuterol/ Ipratropium (Duoneb) 3 ml 1X ONCE 01/11/19 23:45 01/11/19 23:46 DC 01/12/19 00:12 3 ML Aspirin (Children'S Aspirin) 324 mg 1X ONCE 01/11/19 22:00 01/11/19 22:01 DC 01/11/19 22:47 324 MG Fentanyl Citrate (Fentanyl 2ml Vial) 50 mcg 1X ONCE 01/11/19 22:00 01/11/19 22:01 DC 01/11/19 22:49 50 MCG Info (CONTRAST GIVEN -- Rx MONITORING) 1 each PRN DAILY PRN 01/11/19 23:45 01/13/19 23:44 Iohexol (Omnipaque 350 Mg/ml) 100 ml 1X ONCE 01/11/19 23:45 01/11/19 23:46 DC 01/12/19 01:03 100 ML Allergies Allergies Allergies Coded Allergies Type Severity Reaction Last Updated Verified No Known Drug Allergies 02/14/17 No Physical Exam Physical Exam Constitutional: Well developed, well nourished, no acute distress, non-toxic appearance. [] HENT: Normocephalic, atraumatic, bilateral external ears normal, oropharynx moist, no oral exudates, nose normal. [] Eyes: PERRLA, EOMI, conjunctiva normal, no discharge. [] Neck: Normal range of motion, no tenderness, supple, no stridor. [] Cardiovascular:Heart rate regular rhythm, no murmur [] Lungs & Thorax: Bilateral upper breath sounds were expiratory wheeze to auscultation, bilateral lower lobes clear to auscultation.[] Abdomen: Bowel sounds normal, soft, no tenderness, no masses, no pulsatile masses. [] Skin: Warm, dry, no erythema, no rash. [] Back: No tenderness, no CVA tenderness. [] Extremities: No tenderness, no cyanosis, no clubbing, ROM intact, no edema. [] Neurologic: Alert and oriented X 3, normal motor function, normal sensory function, no focal deficits noted. [] Psychologic: Affect normal, judgement normal, mood normal. [] Current Patient Data Vital Signs Vital Signs Date Time Temp Pulse Resp B/P (MAP) Pulse Ox O2 Delivery O2 Flow Rate FiO2 01/12/19 00:37 54 16 191/88 (122) 97 Nasal Cannula 2.0 01/11/19 21:13 98.9 98.9 Lab Values Laboratory Tests Test 01/11/19 22:15 01/11/19 22:20 01/11/19 23:20 D-Dimer (Diana) 1.18 ug/mlFEU (0.00-0.50) H Sodium Level 138 mmol/L (136-145) Potassium Level 4.3 mmol/L (3.5-5.1) Chloride Level 101 mmol/L (98-107) Carbon Dioxide Level 25 mmol/L (21-32) Anion Gap 12 (6-14) Blood Urea Nitrogen 13 mg/dL (8-26) Creatinine 0.9 mg/dL (0.7-1.3) Estimated GFR (Cockcroft-Gault) 110.4 BUN/Creatinine Ratio 14 (6-20) Glucose Level 96 mg/dL (70-99) Calcium Level 9.4 mg/dL (8.5-10.1) Total Bilirubin 0.4 mg/dL (0.2-1.0) Aspartate Amino Transferase (AST) 30 U/L (15-37) Alanine Aminotransferase (ALT) 98 U/L (16-63) H Alkaline Phosphatase 41 U/L (46-116) L Troponin I Quantitative < 0.017 ng/mL (0.000-0.055) Total Protein 7.5 g/dL (6.4-8.2) Albumin 3.6 g/dL (3.4-5.0) Albumin/Globulin Ratio 0.9 (1.0-1.7) L Lipase 131 U/L (73-393) Urine Opiates Screen Neg (NEG) Urine Methadone Screen Neg (NEG) Urine Barbiturates Neg (NEG) Urine Phencyclidine Screen Neg (NEG) Urine Amphetamine/Methamphetamine Neg (NEG) Urine Benzodiazepines Screen Neg (NEG) Urine Cocaine Screen Neg (NEG) Urine Cannabinoids Screen Neg (NEG) Urine Ethyl Alcohol Neg (NEG) White Blood Count 7.1 x10^3/uL (4.0-11.0) Red Blood Count 4.53 x10^6/uL (4.30-5.70) Hemoglobin 14.4 g/dL (13.0-17.5) Hematocrit 43.5 % (39.0-53.0) Mean Corpuscular Volume 96 fL (79-100) Mean Corpuscular Hemoglobin 32 pg (25-35) Mean Corpuscular Hemoglobin Concent 33 g/dL (31-37) Red Cell Distribution Width 12.9 % (11.5-14.5) Platelet Count 213 x10^3/uL (140-400) Neutrophils (%) (Auto) 64 % (31-73) Lymphocytes (%) (Auto) 27 % (24-48) Monocytes (%) (Auto) 8 % (0-9) Eosinophils (%) (Auto) 1 % (0-3) Basophils (%) (Auto) 0 % (0-3) Neutrophils # (Auto) 4.5 x10^3uL (1.8-7.7) Lymphocytes # (Auto) 1.9 x10^3/uL (1.0-4.8) Monocytes # (Auto) 0.5 x10^3/uL (0.0-1.1) Eosinophils # (Auto) 0.1 x10^3/uL (0.0-0.7) Basophils # (Auto) 0.0 x10^3/uL (0.0-0.2) Laboratory Tests 01/11/19 23:20 Laboratory Tests 01/11/19 22:15 EKG EKG Sinus Rhythm and no STEMI[] Interpretation Time: [address] Rodrigues Radiology/Procedures Radiology/Procedures [] Impressions: [facility] [address] [place] [address] IMAGING REPORT Signed PATIENT: FIOR BUSTILLO ACCOUNT: [id number] : 1975 LOCATION: ER AGE: 43 SEX: M EXAM STATUS: REG ER ORD. PHYSICIAN: MARIUM CHERY APRN REASON: CHEST PAIN 16 PROCEDURE: CHEST PA & LATERAL PA and lateral chest. HISTORY: Chest pain PA and lateral views were taken of the chest. Lungs are clear. Heart is normal in size. There is no pleural effusion. IMPRESSION: 1. No acute chest disease. Electronically signed by: Dwight Albarran MD (01/11/2019 10:19 PM) [facility] DICTATED and SIGNED BY: DWIGHT ALBARRAN MD DATE: 01/11/192218 Course & Med Decision Making Course & Med Decision Making Patient is a 43 year old male who presents with was admitted on January 02 with chest pain. Patient is here because he continues to have chest pressure and tightness throughout his whole chest, heart palpitations that come and go, left arm numbness, left jaw pain. Patient has history of smoking, asthma, dyslipidemia, family history of CAD, daily alcohol use. Is alert and oriented. Rates his discomfort at an 8 out of 10. Skin pink warm and dry. PERRLA. His membranes are moist. Denies nausea, vomiting, shortness of air, dizziness, headache, abdominal pain. Patient has no extremity edema. Patient speaks in full clear sentences. Abdomen is soft and nontender. Lungs have inspiratory and expiratory wheezes in upper lobes and lower lobes are clear to auscultation. Patient states he is a smoker. I have the patient DuoNeb breathing treatment. She again denies any shortness of air or cough or fever or recent illness other than the chest pain. EKG shows sinus rhythm and no STEMI. X-ray shows no acute findings. Patient is given fentanyl for his pain. Vital signs are within normal limits and he is afebrile. Blood work is unremarkable except for d-dimer is elevated at 1.18 area because the d-dimer is elevated I have ordered a CTA of the chest. Heart score 4. 0157: Chest CT is not read by radiology. Patient remained stable and vital signs remained stable. Patient will be admitted for an elevated d-dimer and chest pain to Dr. Rose. I have reported this patient off to Dr. Rodrigues and he will give Dr. Rose report on the patient in the morning. Dragon Disclaimer Dragon Disclaimer This electronic medical record was generated, in whole or in part, using a voice recognition dictation system. Departure Departure Impression: Primary Impression: Chest pain Additional Impression: Elevated d-dimer Disposition: ADMITTED INPATIENT Admitting Physician: Floresita Rose Condition: STABLE Referrals: UNKNOWN PCP NAME (PCP) Problem Qualifiers Primary Impression: Chest pain Chest pain type: unspecified Qualified Codes: R07.9 - Chest pain, unspecified MARIUM CHERY APRN Jan 11, 2019 22:31
[2019-01-11 22:39] LABS: BARBITURATES NEG (NEG); BENZODIAZEPINES NEG (NEG); CANNABINOIDS NEG (NEG); COCAINE NEG (NEG); METHADONE NEG (NEG); OPIATES NEG (NEG); PHENCYCLIDINE NEG (NEG)
[2019-01-11 22:42] LABS: AMPHETAMINE/METHAMPHETAMINE NEG (NEG)
[2019-01-11 22:45] LABS: CALCIUM 9.4 mg/dL (8.5-10.1); CREATININE 0.9 mg/dL (0.7-1.3); GFR 110.4; POTASSIUM 4.3 mmol/L (3.5-5.1)
[2019-01-11 22:51] LABS: ALBUMIN 3.6 g/dL (3.4-5.0); ALBUMIN/GLOBULIN RATIO 0.9 (1.0-1.7); TOTAL BILIRUBIN 0.4 mg/dL (0.2-1.0); TOTAL PROTEIN 7.5 g/dL (6.4-8.2)
[2019-01-11 23:32] LABS: BASO % 0 % (0-3); EOS # 0.1 x10^3/uL (0.0-0.7); EOS % 1 % (0-3); HEMATOCRIT 43.5 % (39.0-53.0); HEMOGLOBIN 14.4 g/dL (13.0-17.5); LYMPH # 1.9 x10^3/uL (1.0-4.8); LYMPH % 27 % (24-48); MEAN CORPUSCULAR HEMOGLOBIN 32 pg (25-35); MEAN CORPUSCULAR HGB CONC 33 g/dL (31-37); MEAN CORPUSCULAR VOLUME 96 fL (79-100); MONO # 0.5 x10^3/uL (0.0-1.1); MONO % 8 % (0-9); NEUT # 4.5 x10^3uL (1.8-7.7); NEUT % 64 % (31-73); PLATELET COUNT 213 x10^3/uL (140-400); RED BLOOD COUNT 4.53 x10^6/uL (4.30-5.70); RED CELL DISTRIBUTION WIDTH 12.9 % (11.5-14.5); WHITE BLOOD COUNT 7.1 x10^3/uL (4.0-11.0)
[2019-01-11] MEDS ORDERED: CONTRAST GIVEN. MC PRN (23:45)
[2019-01-11] MEDS ORDERED: IPRATRPIUM/ALBUTEROL 0.5/2.5MG 3 ML NEBU. NEB ONE (23:45)
[2019-01-11] MEDS ORDERED: IOHEXOL 350 MG/ML 100 ML VIAL. IV ONE (23:45)
[2019-01-12] MEDS ORDERED: fentaNYL PF VIAL 100 MCG/2 ML VIAL IV PRN ×2 (02:00→09:15)
[2019-01-12] MEDS ORDERED: NITROGLYCERIN SUBLINGUAL 0.4 MG BOTTLE OF 25. SL PRN (02:00)
[2019-01-12] MEDS ORDERED: ONDANSETRON PF 4 MG/2 ML VIAL. IV PRN ×2 (02:00→09:15)
--- NOTE | 2019-01-12 02:05 | RAD ---
CT angiogram of the chest with contrast: Reason for examination: Elevated d-dimer. Helical images were obtained to the chest with intravenous administration of 100 cc Omnipaque 350 using PE protocol. 3-D MIPS reconstruction was performed in sagittal and coronal planes. Exposure: One or more of the following individualized dose reduction techniques were utilized for this examination: 1. Automated exposure control 2. Adjustment of the mA and/or kV according to patient size 3. Use of iterative reconstruction technique. No abnormality seen at the thyroid gland. The trachea and mainstem bronchi show no intraluminal lesions. No abnormality seen at the esophagus. The thoracic aorta shows no aneurysmal dilatation or dissection. The heart size is normal with no pericardial effusion. There is no evidence of pulmonary embolus. The lung valiente show no infiltrates, nodules, pleural effusions or pneumothorax. No abnormality seen at the liver, spleen, adrenal glands, pancreas or gallbladder. No renal calculi or hydronephrosis are seen. No acute bony abnormalities are seen. IMPRESSION: No pulmonary embolus. No acute abnormality seen in the chest. Electronically signed by: Martha Ackerman MD (01/12/2019 2:02 AM) [place] [id number]
[2019-01-12 02:45] VITALS: BP 179/94
[2019-01-12 07:00] VITALS: BP 174/48
[2019-01-12] MEDS: IPRATRPIUM/ALBUTEROL 0.5/2.5MG 3 ML NEBU. NEB SCH ×4 (07:35→20:10)
[2019-01-12] MEDS ORDERED: LABETALOL 20 MG/4 ML DISP.SYRIN. IVP PRN (09:15)
[2019-01-12] MEDS ORDERED: chlordiazePOXIDE HCL 25 MG CAPSULE PO PRN (09:15)
[2019-01-12] MEDS ORDERED: IBUPROFEN 400 MG TABLET. PO PRN (09:15)
[2019-01-12] MEDS ORDERED: NICOTINE 21MG PATCH. TD PRN (09:15)
[2019-01-12] MEDS ORDERED: ONDANSETRON ODT 4 MG TAB.RAPDIS. PO PRN (09:30)
[2019-01-12 10:50] VITALS: BP 128/91
--- NOTE | 2019-01-12 10:50 | PDOC ---
CARDIOLOGY PROGRESS NOTE SUBJECTIVE: Please see consult note for full details from last week. Returns with atypical chest pain. No dyspnea. OBJECTIVE: Vital SIgns: Vital Signs Date Time Temp Pulse Resp B/P (MAP) Pulse Ox O2 Delivery O2 Flow Rate FiO2 01/12/19 07:54 Room Air 01/12/19 07:37 96 01/12/19 07:00 98.3 66 18 174/48 (90) 1.5 98.3 Objective: GEN.: No apparent distress. Alert and oriented. HEENT: Head is normocephalic, atraumatic NECK: Supple. LUNGS: Clear to auscultation. HEART: RRR, S1, S2 present. Peripheral pulses intact ABDOMEN: Soft, nontender. Positive bowel sounds. EXTREMITIES: Without any cyanosis. NEUROLOGIC: Normal speech, normal tone PSYCHIATRIC: Normal affect, normal mood. SKIN: No ulcerations DIAGNOSTIC TESTING: Trop negative. ASSESSMENT: 1. Atypical chest pain, recurrent x 2 and now with two admissions. 2. HTN PLAN: 1. Discussed with him about outpt versus inpt stress testing and he wishes to stay. Will plan for treadmill stress in a.m. Thanks 2. Add amlodipine for BP control. Thanks PUMA RYAN MD Jan 12, 2019 10:50
[2019-01-12] MEDS ORDERED: amLODIPine BESYLATE 5 MG TABLET PO ONE (11:00)
--- NOTE | 2019-01-12 11:05 | PDOC1 ---
History and Physical Date of Admission Date of Admission DATE: 01/12/19 TIME: 11:00 Identification/Chief Complaint Chief Complaint Chest pain Source Source: Caregiver, Chart review, Patient History of Present Illness History of Present Illness 43-year-old -N[place]alese male who was just discharged here for chest pain after a normal echocardiogram, comes in again because of persistent chest pain left-sided -heavy, palpitations. He does have history family history of premature CAD, father at age 57. He does have history of dyslipidemia, smoker, alcohol occasional, asthma otherwise stable. So far labs are unremarkable. Planned for stress test tomorrow as seen by cardiology. Troponin 2 is negative. Blood pressure is okay. He relates the chest pain involving the left arm tingling numbness in moving his left jaw. Identifiable precipitating or alleviating factors. But no diaphoresis SOA or presyncopal symptoms. Currently chest pain-free Requests hospitalist to fill out some paperwork that he can go back to work full -time but he has not brought those paperwork with him today Pressure is on the high side, cardiology has added Norvasc to his regimen Past Medical History Cardiovascular: HTN, Hyperlipidemia Pulmonary: Asthma GI: GERD Heme/Onc: No pertinent hx Hepatobiliary: No pertinent hx Psych: Anxiety Musculoskeletal: Other Rheumatologic: No pertinent hx Infectious disease: No pertinent hx Renal/: No pertinent hx Endocrine: No pertinent hx Past Surgical History Past Surgical History: No pertinent history Family History Family History: Coronary Artery Disease, Heart Disease Social History Smoke: <1 pack per day ALCOHOL: occassional Drugs: Marijuana Current Problem List Problem List Problems Medical Problems: (1) Elevated d-dimer Status: Acute Current Medications Current Medications Current Medications Aspirin (Children'S Aspirin) 324 mg 1X ONCE PO Last administered on 01/11/19at 22:47; Start 01/11/19 at 22:00; Stop 01/11/19 at 22:01; Status DC Fentanyl Citrate (Fentanyl 2ml Vial) 50 mcg 1X ONCE IV Last administered on at 22:49; Start 01/11/19 at 22:00; Stop 01/11/19 at 22:01; Status DC Iohexol (Omnipaque 350 Mg/ml) 100 ml 1X ONCE IV Last administered on at 01:03; Start 01/11/19 at 23:45; Stop 01/11/19 at 23:46; Status DC Albuterol/ Ipratropium (Duoneb) 3 ml 1X ONCE NEB Last administered on at 00:12; Start 01/11/19 at 23:45; Stop 01/11/19 at 23:46; Status DC Info (CONTRAST GIVEN -- Rx MONITORING) 1 each PRN DAILY PRN MC SEE COMMENTS; Start 01/11/19 at 23:45; Stop 01/13/19 at 23:44 Ondansetron HCl (Zofran) 4 mg PRN Q8HRS PRN IV NAUSEA/VOMITING 1ST CHOICE; Start 01/12/19 at 02:00; Stop 01/12/19 at 09:06; Status DC Fentanyl Citrate (Fentanyl 2ml Vial) 50 mcg PRN Q1HR PRN IV SEVERE PAIN; Start 01/12/19 at 02:00; Stop 01/12/19 at 09:06; Status DC Nitroglycerin (Nitrostat) 0.4 mg PRN Q5MIN PRN SL CHEST PAIN; Start 01/12/19 at 02:00; Stop 01/13/19 at 01:59 Albuterol/ Ipratropium (Duoneb) 3 ml RTQID NEB Last administered on 01/12/19at 07:35; Start 01/12/19 at 08:00; Stop 01/13/19 at 07:59 Fentanyl Citrate (Fentanyl 2ml Vial) 50 mcg PRN Q2HR PRN IV SEVERE PAIN; Start 01/12/19 at 09:15 Ondansetron HCl (Zofran) 4 mg PRN Q6HRS PRN IV NAUSEA/VOMITING 1ST CHOICE; Start 01/12/19 at 09:15 Ibuprofen (Motrin) 400 mg PRN Q6HRS PRN PO INFLAMMATION; Start 01/12/19 at 09: 15 Nicotine (Nicoderm Cq 21mg) 1 patch PRN DAILY PRN TD SMOKING CESSATION; Start 01/12/19 at 09:15 Labetalol HCl (Normodyne Iv Push) 10 mg PRN Q2HR PRN IVP HYPERTENSION, SEE COMMENTS; Start 01/12/19 at 09:15 Chlordiazepoxide (Librium) 25 mg PRN Q6HRS PRN PO ANXIETY / AGITATION; Start at 09:15 Thiamine Mononitrate (Vitamin B-1) 100 mg DAILY PO ; Start 01/12/19 at 09:30 Folic Acid (Folic Acid) 1 mg DAILY PO ; Start 01/12/19 at 09:30 Multivitamins (Thera M Plus) 1 tab DAILY PO ; Start 01/12/19 at 09:30 EZETIMIBE (Zetia) 10 mg DAILY PO ; Start 01/12/19 at 09:30 Bupropion HCl (Wellbutrin Xl) 300 mg DAILY PO ; Start 01/12/19 at 10:00 Montelukast Sodium (Singulair) 10 mg QHS PO ; Start 01/12/19 at 21:00 Ondansetron HCl (Zofran Odt) 4 mg PRN BID PRN PO NAUSEA/VOMITING 1ST CHOICE; Start 01/12/19 at 09:30 Amlodipine Besylate (Norvasc) 5 mg 1X ONCE PO ; Start 01/12/19 at 11:00; Stop 01/12/19 at 11:01 Amlodipine Besylate (Norvasc) 10 mg DAILY PO ; Start 01/13/19 at 09:00 Active Scripts Active Duoneb 0.5-3(2.5) Mg/3 Ml (Albuterol/Ipratropium) 3 Ml Ampul.neb 3 Ml NEB QID Proair Hfa Inhaler (Albuterol Sulfate) 8.5 Gm Hfa.aer.ad 1 Puff INH PRN Q6HRS PRN Zithromax (Azithromycin) 250 Mg Tablet 1 Pkg PO UD Prednisone 50 Mg Tablet 1 Tab PO DAILY Proair Respiclick (Albuterol Sulfate) 90 Mcg Aer.pow.ba 1 Puff IH PRN Q6HRS PRN Zofran (Ondansetron Hcl) 4 Mg Tablet 4 Mg PO BID PRN Reported Montelukast Sodium Tablet (Montelukast Sodium) 10 Mg Tablet 10 Mg PO DAILY Bupropion Xl (Bupropion HCl) 450 Mg Tab.er.24h 300 Mg PO DAILY Zetia (Ezetimibe) 10 Mg Tablet 10 Mg PO DAILY Allergies Allergies: Coded Allergies: No Known Drug Allergies (Unverified , 02/14/17) ROS Review of System As per history of present illness, the rest of ROS 14 point negative Physical Exam General: Alert, Oriented X3, Cooperative, No acute distress HEENT: Atraumatic, PERRLA Lungs: Clear to auscultation, Normal air movement Heart: S1S2, RRR, no thrills, no rubs, no gallops, no murmurs Cardiovascular: S1, S2 Breasts: Normal, Rt breast nml w/o mass, Lt breast nml w/o mass, Nipples normal Abdomen: Normal bowel sounds, Soft, No tenderness, No hepatosplenomegaly, No masses Male Genitals Exam: normal genitalia, normal prostate Rectal Exam: not examined PELVIC: Nml ext genitalia Extremities: No clubbing, No cyanosis, No edema, Normal pulses, No tenderness/ swelling Skin: No rashes, No breakdown, No significant lesion Neuro: Normal gait, Normal speech, Strength at 5/5 X4 ext, Normal tone, Sensation intact, Cranial nerves 3-12 NL, Reflexes 2+ Psych/Mental Status: Mental status NL, Mood NL Vitals Vitals Vital Signs Date Time Temp Pulse Resp B/P (MAP) Pulse Ox O2 Delivery O2 Flow Rate FiO2 01/12/19 10:50 97.8 92 18 128/91 (103) 100 Room Air 97.8 01/12/19 07:00 1.5 Labs Labs Laboratory Tests Test 01/11/19 22:15 01/11/19 22:20 01/11/19 23:20 01/12/19 03:50 D-Dimer (Diana) 1.18 ug/mlFEU (0.00-0.50) Sodium Level 138 mmol/L (136-145) Potassium Level 4.3 mmol/L (3.5-5.1) Chloride Level 101 mmol/L (98-107) Carbon Dioxide Level 25 mmol/L (21-32) Anion Gap 12 (6-14) Blood Urea Nitrogen 13 mg/dL (8-26) Creatinine 0.9 mg/dL (0.7-1.3) Estimated GFR (Cockcroft-Gault) 110.4 BUN/Creatinine Ratio 14 (6-20) Glucose Level 96 mg/dL (70-99) Calcium Level 9.4 mg/dL (8.5-10.1) Total Bilirubin 0.4 mg/dL (0.2-1.0) Aspartate Amino Transf (AST/SGOT) 30 U/L (15-37) Alanine Aminotransferase (ALT/SGPT) 98 U/L (16-63) Alkaline Phosphatase 41 U/L (46-116) Troponin I Quantitative < 0.017 ng/mL (0.000-0.055) < 0.017 ng/mL (0.000-0.055) Total Protein 7.5 g/dL (6.4-8.2) Albumin 3.6 g/dL (3.4-5.0) Albumin/Globulin Ratio 0.9 (1.0-1.7) Lipase 131 U/L (73-393) Urine Opiates Screen Neg (NEG) Urine Methadone Screen Neg (NEG) Urine Barbiturates Neg (NEG) Urine Phencyclidine Screen Neg (NEG) Urine Amphetamine/Methamphetamine Neg (NEG) Urine Benzodiazepines Screen Neg (NEG) Urine Cocaine Screen Neg (NEG) Urine Cannabinoids Screen Neg (NEG) Urine Ethyl Alcohol Neg (NEG) White Blood Count 7.1 x10^3/uL (4.0-11.0) Red Blood Count 4.53 x10^6/uL (4.30-5.70) Hemoglobin 14.4 g/dL (13.0-17.5) Hematocrit 43.5 % (39.0-53.0) Mean Corpuscular Volume 96 fL (79-100) Mean Corpuscular Hemoglobin 32 pg (25-35) Mean Corpuscular Hemoglobin Concent 33 g/dL (31-37) Red Cell Distribution Width 12.9 % (11.5-14.5) Platelet Count 213 x10^3/uL (140-400) Neutrophils (%) (Auto) 64 % (31-73) Lymphocytes (%) (Auto) 27 % (24-48) Monocytes (%) (Auto) 8 % (0-9) Eosinophils (%) (Auto) 1 % (0-3) Basophils (%) (Auto) 0 % (0-3) Neutrophils # (Auto) 4.5 x10^3uL (1.8-7.7) Lymphocytes # (Auto) 1.9 x10^3/uL (1.0-4.8) Monocytes # (Auto) 0.5 x10^3/uL (0.0-1.1) Eosinophils # (Auto) 0.1 x10^3/uL (0.0-0.7) Basophils # (Auto) 0.0 x10^3/uL (0.0-0.2) Laboratory Tests Test 3/16/19 22:15 01/11/19 22:20 01/11/19 23:20 01/12/19 03:50 D-Dimer (Diana) 1.18 ug/mlFEU (0.00-0.50) Sodium Level 138 mmol/L (136-145) Potassium Level 4.3 mmol/L (3.5-5.1) Chloride Level 101 mmol/L (98-107) Carbon Dioxide Level 25 mmol/L (21-32) Anion Gap 12 (6-14) Blood Urea Nitrogen 13 mg/dL (8-26) Creatinine 0.9 mg/dL (0.7-1.3) Estimated GFR (Cockcroft-Gault) 110.4 BUN/Creatinine Ratio 14 (6-20) Glucose Level 96 mg/dL (70-99) Calcium Level 9.4 mg/dL (8.5-10.1) Total Bilirubin 0.4 mg/dL (0.2-1.0) Aspartate Amino Transf (AST/SGOT) 30 U/L (15-37) Alanine Aminotransferase (ALT/SGPT) 98 U/L (16-63) Alkaline Phosphatase 41 U/L (46-116) Troponin I Quantitative < 0.017 ng/mL (0.000-0.055) < 0.017 ng/mL (0.000-0.055) Total Protein 7.5 g/dL (6.4-8.2) Albumin 3.6 g/dL (3.4-5.0) Albumin/Globulin Ratio 0.9 (1.0-1.7) Lipase 131 U/L (73-393) Urine Opiates Screen Neg (NEG) Urine Methadone Screen Neg (NEG) Urine Barbiturates Neg (NEG) Urine Phencyclidine Screen Neg (NEG) Urine Amphetamine/Methamphetamine Neg (NEG) Urine Benzodiazepines Screen Neg (NEG) Urine Cocaine Screen Neg (NEG) Urine Cannabinoids Screen Neg (NEG) Urine Ethyl Alcohol Neg (NEG) White Blood Count 7.1 x10^3/uL (4.0-11.0) Red Blood Count 4.53 x10^6/uL (4.30-5.70) Hemoglobin 14.4 g/dL (13.0-17.5) Hematocrit 43.5 % (39.0-53.0) Mean Corpuscular Volume 96 fL (79-100) Mean Corpuscular Hemoglobin 32 pg (25-35) Mean Corpuscular Hemoglobin Concent 33 g/dL (31-37) Red Cell Distribution Width 12.9 % (11.5-14.5) Platelet Count 213 x10^3/uL (140-400) Neutrophils (%) (Auto) 64 % (31-73) Lymphocytes (%) (Auto) 27 % (24-48) Monocytes (%) (Auto) 8 % (0-9) Eosinophils (%) (Auto) 1 % (0-3) Basophils (%) (Auto) 0 % (0-3) Neutrophils # (Auto) 4.5 x10^3uL (1.8-7.7) Lymphocytes # (Auto) 1.9 x10^3/uL (1.0-4.8) Monocytes # (Auto) 0.5 x10^3/uL (0.0-1.1) Eosinophils # (Auto) 0.1 x10^3/uL (0.0-0.7) Basophils # (Auto) 0.0 x10^3/uL (0.0-0.2) VTE Prophylaxis Ordered VTE Prophylaxis Devices: Yes VTE Pharmacological Prophylaxi: Yes Assessment/Plan Assessment/Plan Chest pain rule out ACS Alcohol drinker, smoker Family history premature CAD father age 57 Accel hypertension PLAN: By mouth post midnight, stress test tomorrow per cardiology Norvasc has been added to his BP regimen Paperwork for work to send to [phone] HANNAH BANSAL MD Jan 12, 2019 11:05
[2019-01-12] MEDS: THIAMINE 100 MG TABLET. PO SCH (12:08)
[2019-01-12] MEDS: FOLIC ACID 1 MG TABLET. PO SCH (12:08)
[2019-01-12] MEDS: MULTIVITAMIN with MINERAL TABLET. PO SCH (12:08)
[2019-01-12] MEDS: buPROPion XL 150 MG TAB.ER.24H. PO SCH (12:08)
[2019-01-12] MEDS: EZETIMIBE 10 MG TABLET. PO SCH (12:10)
[2019-01-12] MEDS ORDERED: BUPR300T4 PO (13:18)
--- NOTE | 2019-01-12 14:00 | EKG ---
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
[2019-01-12 15:00] VITALS: BP 139/71
[2019-01-12 19:23] VITALS: BP 140/73
[2019-01-12] MEDS ORDERED: MONTELUKAST SODIUM 10 MG TABLET. PO SCH (21:00)
[2019-01-12 23:00] VITALS: BP 134/74
[2019-01-13 04:15] VITALS: BP 135/74
[2019-01-13 07:48] VITALS: BP 147/75
[2019-01-13] MEDS: IPRATRPIUM/ALBUTEROL 0.5/2.5MG 3 ML NEBU. NEB SCH (07:59)
[2019-01-13] MEDS ORDERED: amLODIPine BESYLATE 10 MG TABLET PO SCH (09:00)
[2019-01-13] MEDS: MULTIVITAMIN with MINERAL TABLET. PO SCH (09:00)
[2019-01-13 10:37] VITALS: BP 115/82
[2019-01-13] MEDS: THIAMINE 100 MG TABLET. PO SCH (10:45)
[2019-01-13] MEDS: FOLIC ACID 1 MG TABLET. PO SCH (10:47)
[2019-01-13] MEDS: buPROPion XL 150 MG TAB.ER.24H. PO SCH (10:47)
[2019-01-13] MEDS: EZETIMIBE 10 MG TABLET. PO SCH (10:48)
--- NOTE | 2019-01-13 11:48 | NUR ---
SS following for discharge planning. SS reviewed pt chart and met with pt's RN. Pt is from home with spouse and is currently on room air. No discharge needs noted at this time. SS will continue to follow for pending discharge needs.
--- NOTE | 2019-01-13 11:51 | PDOC ---
CARDIO Progress Notes Date and Time Date of Service 01/13/2019 Time of Evaluation 1130 Subjective Subjective: No Chest Pain, No shortness of breath, No Palpitations Vitals Vitals Vital Signs Date Time Temp Pulse Resp B/P (MAP) Pulse Ox O2 Delivery O2 Flow Rate FiO2 01/13/19 10:46 101 115/82 01/13/19 10:37 97.9 18 94 Room Air 97.9 01/13/19 08:00 2.0 Weight Weight [ ] Input and Output Intake and Output Intake and Output 01/13/19 06:59 Intake Total 1600 ml Balance 1600 ml Intake Oral 1600 ml # Voids 3 Physical Exam HEENT: Neck Supple W Full Motion Chest: Symmetric LUNGS: Clear to Auscultation Heart: S1S2, RRR (SR) Abdomen: Soft N/T Extremities: No Calf Tenderness Neurology: alert, oriented, follow commands Assessment Assessment 1. Atypical chest pain, recurrent x 2 and now with two admissions. 2. HTN: controlled 3. HLP 4. Obesity 5. Episodes of asymptomatic SB 6. Tobaccoism 7. Alcoholism Recommendations 1. Treadmill MPI today. Anticipate DC this afternoon unless significantly abnormal. 2. Continue with current regimen, wt loss. 3. Smoking cessation 4. Curb ETOH use TOMAS GARCIA APRN Jan 13, 2019 11:51
[2019-01-13 14:35] VITALS: BP 131/66
--- NOTE | 2019-01-13 15:21 | RAD ---
MR#: [id number] Date of Study: 01/13/2019 Ordering Physician: PUMA LEONARD, Referring Physician: DARNELL MEYERS Tech: MARLEN Ratliff ARRT (R) (N) APPROVED REPORT Test Type: Exercise Stress Nurse/Tech: Halley Martinez R.N. Test Indications: cp Cardiac History: htn, high chol, smoker Medications: see ehr Medical History: see ehr Resting ECG: sr Resting Heart Rate: 64 bpm Resting Blood Pressure: 123/63mmHg Pretest Chest Pain: No chest pain Nurse/Tech Notes lungs cta, heart tones regular Consent: The procedure was explained to the patient in lay terms. Informed consent was witnessed. Irving eout was entered into [employer]. History and Stress Test performed by [employer] Stress Symptoms No chest pain or symptoms. POST EXERCISE Reason for Termination: Reached target heart rate Target HR: Yes Max HR: 172 bpm 98% of Maximum Predicted HR: 175 bpm Exercise duration: 10:40 min:sec, 4 Stage Exercise capacity: 13.4METs Max Blood Pressure: 139/66mmHg Blood Pressure response to exercise: Normal blood pressure response during stress. Heart Rate response to exercise: normal Chest Pain: No. Arrhythmia: No. ST Change: no. INTERPRETATION Stress EKG Conclusion: No evidence of stress induced EKG changes. Imaging Protocol IMAGE PROTOCOL: Rest Tc-99m/stress Tc-99m 1 day Rest: Stress: Viability: Radiopharm.Tc99m EzznbginsEx69z Sestamibi Clpt65zWm 33mCi Img Date 01/13/2019 01/13/2019 Inj-Img Fegx88ncy. 60min. Rest Admin Site:IV - Left AntecubitalAdministrator:MARLEN Ratliff ARRT (Mer)(N) Stress Admin Site: IV - Left AntecubitalAdministrator: LEIGH [employer] STRESS DATA End Diast. Vol.137.0mlLVEDV index BSA62.0ml End Syst. Vol.55.0mlLVESV index BSA25.0ml Myocardial Zlmd019.0gEject. Gcwhitso05.0% Stress Scores Regional WT1.00Summed WT17.00 Regional WM0.00Summed WM5.00 The rest and stress images show normal perfusion, normal contraction and thickening. LV Perf. Quant 17 Seg. SSS0.00 17 Seg. SRS0.00 17 Seg. SDS0.00 Stress Defect Extent (% LAD)0.00Rest Defect Extent (% LAD)0.00Rev. Defect Extent (% LAD)0.00 Stress Defect Extent (% LCX) 0.00Rest Defect Extent (% LCX)0.00Rev. Defect Extent (% LCX)0.00 Stress Defect Extent (% RCA)0.00Rest Defect Extent (% RCA)0.00Rev. Defect Extent (% RCA)0.00 Stress Defect Extent (% ANN)0.00Rest Defect Extent (% ANN)0.00Rev. Defect Extent (% ANN)0.00 Other Information Quality:Good Risk Assessment: Low Risk Conclusion 1. No evidence of EKG changes with stress testing. 2. Good exercise capacity. 3. Normal perfusion at stress/rest. 4. Low risk study. 5. EF > 60%. Signed by : Puma Leonard, Electronically Approved : 01/13/2019 15:20:55
[2019-01-13] MEDS ORDERED: AMLO10TA8 PO (16:16)
--- NOTE | 2019-01-13 16:24 | PDOC3 ---
Discharge Summary Visit Information Date of Admission: Jan 12, 2019 Date of Discharge: Jan 13, 2019 Admitting Diagnosis: Chest pain Final Diagnosis Chest pain negative stress test Alcohol drinker, smoker Family history premature CAD father age 57 Accel hypertension improved Brief Hospital Course Allergies Allergies Coded Allergies Type Severity Reaction Last Updated Verified No Known Drug Allergies 02/14/17 No Vital Signs Vital Signs Date Time Temp Pulse Resp B/P (MAP) Pulse Ox O2 Delivery O2 Flow Rate FiO2 01/13/19 14:35 98.0 99 18 131/66 (87) 96 Room Air 98.0 01/13/19 08:00 2.0 Lab Results Laboratory Tests Test 01/11/19 22:15 01/11/19 22:20 01/11/19 23:20 01/12/19 03:50 D-Dimer (Diana) 1.18 ug/mlFEU (0.00-0.50) Sodium Level 138 mmol/L (136-145) Potassium Level 4.3 mmol/L (3.5-5.1) Chloride Level 101 mmol/L (98-107) Carbon Dioxide Level 25 mmol/L (21-32) Anion Gap 12 (6-14) Blood Urea Nitrogen 13 mg/dL (8-26) Creatinine 0.9 mg/dL (0.7-1.3) Estimated GFR (Cockcroft-Gault) 110.4 BUN/Creatinine Ratio 14 (6-20) Glucose Level 96 mg/dL (70-99) Calcium Level 9.4 mg/dL (8.5-10.1) Total Bilirubin 0.4 mg/dL (0.2-1.0) Aspartate Amino Transf (AST/SGOT) 30 U/L (15-37) Alanine Aminotransferase (ALT/SGPT) 98 U/L (16-63) Alkaline Phosphatase 41 U/L (46-116) Troponin I Quantitative < 0.017 ng/mL (0.000-0.055) < 0.017 ng/mL (0.000-0.055) Total Protein 7.5 g/dL (6.4-8.2) Albumin 3.6 g/dL (3.4-5.0) Albumin/Globulin Ratio 0.9 (1.0-1.7) Lipase 131 U/L (73-393) Urine Opiates Screen Neg (NEG) Urine Methadone Screen Neg (NEG) Urine Barbiturates Neg (NEG) Urine Phencyclidine Screen Neg (NEG) Urine Amphetamine/Methamphetamine Neg (NEG) Urine Benzodiazepines Screen Neg (NEG) Urine Cocaine Screen Neg (NEG) Urine Cannabinoids Screen Neg (NEG) Urine Ethyl Alcohol Neg (NEG) White Blood Count 7.1 x10^3/uL (4.0-11.0) Red Blood Count 4.53 x10^6/uL (4.30-5.70) Hemoglobin 14.4 g/dL (13.0-17.5) Hematocrit 43.5 % (39.0-53.0) Mean Corpuscular Volume 96 fL (79-100) Mean Corpuscular Hemoglobin 32 pg (25-35) Mean Corpuscular Hemoglobin Concent 33 g/dL (31-37) Red Cell Distribution Width 12.9 % (11.5-14.5) Platelet Count 213 x10^3/uL (140-400) Neutrophils (%) (Auto) 64 % (31-73) Lymphocytes (%) (Auto) 27 % (24-48) Monocytes (%) (Auto) 8 % (0-9) Eosinophils (%) (Auto) 1 % (0-3) Basophils (%) (Auto) 0 % (0-3) Neutrophils # (Auto) 4.5 x10^3uL (1.8-7.7) Lymphocytes # (Auto) 1.9 x10^3/uL (1.0-4.8) Monocytes # (Auto) 0.5 x10^3/uL (0.0-1.1) Eosinophils # (Auto) 0.1 x10^3/uL (0.0-0.7) Basophils # (Auto) 0.0 x10^3/uL (0.0-0.2) Test 01/12/19 10:52 Troponin I Quantitative < 0.017 ng/mL (0.000-0.055) Brief Hospital Course 43-year-old -[place] male who was just discharged here for chest pain after a normal echocardiogram, comes in again because of persistent chest pain left-sided -heavy, palpitations. He does have history family history of premature CAD, father at age 57. He does have history of dyslipidemia, smoker, alcohol occasional, asthma otherwise stable. So far labs are unremarkable. Planned for stress test tomorrow as seen by cardiology. Troponin 2 is negative. Blood pressure is okay. He relates the chest pain involving the left arm tingling numbness in moving his left jaw. Identifiable precipitating or alleviating factors. But no diaphoresis SOA or presyncopal symptoms. Currently chest pain-free Requests hospitalist to fill out some paperwork that he can go back to work full -time but he has not brought those paperwork with him today Pressure is on the high side, cardiology has added Norvasc to his regimen Hospital course was very uneventful. The patient underwent a stress test as part of his workup with negative results. He was deemed appropriate for discharge and his blood pressure improved with the addition of Norvasc. Patient was encouraged decrease the amount of alcohol intake and also quit smoking. He was also encouraged to follow-up closely with his primary care physician for further titration of his antihypertensive therapy. All of his concerns were addressed to the best of my abilities. Signs and symptoms of alarm discussed prior to discharge as well Discharge Information Condition at Discharge: Improved Follow Up: Weeks (1 week with primary care physician) Disposition/Orders: D/C to Home Scheduled Amlodipine Besylate (Amlodipine Besylate) 10 Mg Tablet, 10 MG PO DAILY for HTN for 30 Days, #30 Prescribed by: WYATT BILLY MD on 01/13/19 1616 Bupropion Hcl (Bupropion Xl) 300 Mg Tab.er.24h, 1 TAB PO DAILY, #30 Ref 2 ( Reported) Entered as Reported by: NISSA FRAZIER RPH on 01/12/191317 Last Action: New Order on 01/12/191317 by NISSA FRAZIER RPH Ezetimibe (Zetia) 10 Mg Tablet, 10 MG PO DAILY for high cholesterol, (Reported) Entered as Reported by: SAHRA CALLES on 01/02/19 1058 Last Action: Continued on 01/12/19906 by HANNAH BANSAL Ipratropium/Albuterol Sulfate (Duoneb 0.5-3(2.5) Mg/3 Ml) 3 Ml Ampul.neb, 3 ML NEB QID, #1 Prescribed by: MARIUM MCKOY APRN on 05/03/17 1230 Last Action: Reviewed on 01/12/19906 by HANNAH BANSAL Montelukast Sodium (Montelukast Sodium Tablet) 10 Mg Tablet, 10 MG PO DAILY for FOR ASTHMA, #30 Ref 0 (Reported) Entered as Reported by: SAHRA CALLES on 01/02/191058 Last Action: Converted on 01/12/19906 by HANNAH BANSAL Prednisone (Prednisone) 50 Mg Tablet, 1 TAB PO DAILY, #4 Prescribed by: Falguni Early APRN on 02/27/171928 Last Action: HELD on 01/12/19906 by HANNAH BANSAL Scheduled PRN Albuterol Sulfate (Proair Respiclick) 90 Mcg Aer.pow.ba, 1 PUFF IH PRN Q6HRS PRN for SHORTNESS OF BREATH, #1 Prescribed by: Falguni Early APRN on 02/27/171928 Last Action: Reviewed on 01/12/19906 by HANNAH BANSAL Albuterol Sulfate (Proair Hfa Inhaler) 8.5 Gm Hfa.aer.ad, 1 PUFF INH PRN Q6HRS PRN for SHORTNESS OF BREATH, #1 Ref 0 Prescribed by: MARIUM MCKOY APRN on 05/03/17 1230 Last Action: Reviewed on 01/12/19906 by HANNAH BANSAL Ondansetron Hcl (Zofran) 4 Mg Tablet, 4 MG PO BID PRN for NAUSEA/VOMITING, #10 Prescribed by: JUAN JACKSON D.O. on 02/14/172202 Last Action: Converted on 01/12/19906 by HANNAH BANSAL Discontinued Medications Azithromycin (Zithromax) 250 Mg Tablet, 1 PKG PO UD, #1 Prescribed by: Falguni Early APRN on 02/27/171928 Last Action: HELD on 01/12/19906 by HANNAH BANSAL Bupropion HCl (Bupropion Xl) 450 Mg Tab.er.24h, 300 MG PO DAILY for anixety/dep, (Reported) Discontinued Reason: Prescription changed Entered as Reported by: SAHRA CALLES on 01/02/191057 Last Action: Converted on 01/12/19906 by WYATT LOVE MD Jan 13, 2019 16:24
--- NOTE | 2019-01-13 16:30 | NUR ---
DISCHARGED PATIENT TO HOME. PIV AND HEART MONITOR REMOVED. ESCORTED PATIENT TO EAST ENTRANCE INTO A PRIVATE VEHICLE.
== END 2019-01-13 17:15 | disposition home or self-care (01) | DRG 313 ==
LOC: ER 20:48 → 2 SOUTH 01-12 01:56
PROVIDERS: ADMIT Internal Medicine; ATTEND Internal Medicine
DX: R07.89 Other chest pain (principal); E78.00 Pure hypercholesterolemia, unspecified; J45.909 Unspecified asthma, uncomplicated; E78.5 Hyperlipidemia, unspecified; F17.210 Nicotine dependence, cigarettes, uncomplicated; K21.9 Gastro-esophageal reflux disease without esophagitis; F41.9 Anxiety disorder, unspecified; I10 Essential (primary) hypertension; E66.9 Obesity, unspecified; F10.20 Alcohol dependence, uncomplicated; Z82.49 Family history of ischemic heart disease and other diseases of the circulatory system; Z68.30 Body mass index [BMI] 30.0-30.9, adult
CPT/HCPCS: 36415; 71046; 71275; 78452; 80053; 80307; 83690; 84484; 85025; 85379; 93005; 93017; 94640; 94760; 96374; 96376; A9500; J3010; J7620; Q9967; 99285-25

== ENCOUNTER → 2021-05-26 | Outpatient (CLI) | payer BC ==
[~2021-05-26] MED LIST changes: +AMLO-187 PO; +BUPR300T92 PO; -EZET10TA18 PO; +EZET10TA20 PO; +MONT10TA49 PO; -MONT10TA9 PO
--- NOTE | 2021-05-26 17:30 | CARD ---
MR#: [id number] Date of Study: 05/26/2021 Ordering Physician: MOUNA FLORES, Referring Physician: MOUNA FLORES, Tech: Laura Khalil [facility] APPROVED REPORT EXAM: Two-dimensional and M-mode echocardiogram with Doppler and color Doppler. Other Information Quality : AverageHR: 71bpm INDICATION Hypertension/HCVD RISK FACTORS Hyperlipidemia Smoking Asthma 2D DIMENSIONS RVDd4.0 (2.9-3.5cm)Left Atrium(2D)3.5 (1.6-4.0cm) IVSd1.2 (0.7-1.1cm)Aortic Root(2D)3.0 (2.0-3.7cm) LVDd5.0 (3.9-5.9cm)LVOT Diameter2.1 (1.8-2.4cm) PWd1.2 (0.7-1.1cm)LVDs3.3 (2.5-4.0cm) FS (%) 32.5 %SV70.1 ml Aortic Valve AoV Peak Leonard.135.3cm/sAoV VTI27.7cm AO Peak GR.7.3mmHgLVOT Peak Leonard.117.0cm/s LVOT VTI 21.51cmAO Mean GR.4mmHg MONCHO (VMAX)2.96qc1ZEN (VTI)2.57cm2 Mitral Valve MV E Dfizxskk13.2cm/sMV DECEL [id number] MV A Yshoviao02.0cm/sMV [id number] E/A Ratio1.4MVA (PHT)3.85cm2 TDI E/Lateral E'6.1E/Medial E'8.0 Pulmonary Valve PV Peak Agowyohl29.3cm/sPV Peak Grad.4mmHg Pulmonary Vein S1 Dulwvscu48.2cm/sD2 Whkcwedx97.8cm/s PVa [id number] LEFT VENTRICLE The left ventricle is normal size. There is mild concentric left ventricular hypertrophy. The left ve ntricular systolic function is normal and the ejection fraction is within normal range. The Ejection Fraction is 50-55%. There is normal LV segmental wall motion. The left ventricular diastolic function and filling is normal for age. RIGHT VENTRICLE The right ventricle is borderline dilated. There is normal right ventricular wall thickness. The righ t ventricular systolic function is normal. ATRIA The left atrium size is normal. The right atrium size is normal. The interatrial septum is intact wit h no evidence for an atrial septal defect or patent foramen ovale as noted on 2-D or Doppler imaging. AORTIC VALVE The aortic valve is normal in structure and function. Doppler and Color Flow revealed trace aortic re gurgitation. There is no significant aortic valvular stenosis. Calculated aortic valve area is 2.67 c m2 with maximum pressure gradient of 9 mmHg and mean pressure gradient of 4 mmHg. MITRAL VALVE The mitral valve is normal in structure and function. There is no evidence of mitral valve prolapse. There is no mitral valve stenosis. Doppler and Color Flow revealed no mitral valve regurgitation note d. TRICUSPID VALVE The tricuspid valve is normal in structure and function. Doppler and Color Flow revealed trace tricus pid regurgitation. There is no tricuspid valve stenosis. PULMONIC VALVE The pulmonary valve is normal in structure and function. Doppler and Color Flow revealed trace pulmon ic valvular regurgitation. GREAT VESSELS The aortic root is normal in size. The IVC is normal in size and collapses >50% with inspiration. PERICARDIAL EFFUSION There is no evidence of significant pericardial effusion. Critical Notification Critical Value: No <Conclusion> The left ventricle is normal size. The left ventricular systolic function is normal and the ejection fraction is within normal range. The Ejection Fraction is 50-55%. There is mild concentric left ventricular hypertrophy. Doppler and Color Flow revealed trace aortic regurgitation. There is no significant aortic valvular stenosis. Doppler and Color Flow revealed no mitral valve regurgitation noted. Doppler and Color Flow revealed trace tricuspid regurgitation. Signed by : Min Osullivan MD Electronically Approved : 05/26/2021 17:30:13
== END ==
LOC: ECHO 13:26
PROVIDERS: ATTEND Internal Medicine Cardiovascular Disease
DX: I51.7 Cardiomegaly (principal); I10 Essential (primary) hypertension
CPT/HCPCS: 93306